=== PATIENT | female | born 1930 | race Caucasian/White ===

== ENCOUNTER 2018-07-11 19:37 | Inpatient (IN) | payer MEDICARE, MEDICAID ==
[2018-07-11] MEDS ORDERED: Haloperidol Lactate 5 mg/mL 1mL Vial IM STA (19:54)
--- NOTE | 2018-07-11 19:55 | ED Physician Chart ---
ED Chief Complaint/HPI - Patient Information Date Seen:: 07/11/18 Time Seen:: 19:55 Chief Complaint:: Increased agitation History of Present Illness:: 88 yo female was brought from SNF to ER for evaluation of increased agitation, aggression throwing objects at nursing staff. At ER, patient was yelling and screaming to staff. Patient was constantly trying to climb out of bed. ED Review of Systems - Review of Systems General/Constitutional: No fever Skin: No rash Head: No headache Eyes: No pain ENT: No nasal drainage Neck: No neck pain Cardio Vascular: No chest pain Pulmonary: No SOB GI: No nausea, No vomiting Musculoskeletal: No bone or joint pain Psychiatric: Prior psych history Neurological: No focal symptoms ED Past Medical History - Past Medical History Past Medical History: HTN, Asthma/COPD, Thyroid disorder (Hypothyroidism), Other (Dysphagia, glaucoma, syncope episodes, frequent falls) Social History: Non Smoker, No Alcohol, No Drug Use Psychiatricy History: Depression, Dementia, Other (Anxiety) Family Medical History - Family Member Mother History Unknown: Yes ED Physical Exam - Physical Examination General/Constitutional: Awake Head: Atraumatic Eyes: PERRL, EOMI Skin: No skin lesions ENMT: Nasal exam nl Neck: No nuchal rigidity Respiratory: No Wheeze/Rhonchi/Rales Cardio Vascular: RRR, No murmur, gallop, rubs, NL S1 S2 GI: No tenderness/rebounding/guarding Extremities: No edema Neuro/Psych: No focal deficits ED Labs/Radiology/EKG Results - Lab Results Results: Laboratory Last Values WBC 10.4 Th/cmm (4.8-10.8) 07/11/18 21:50 RBC 5.49 Mil/cmm (3.80-5.20) H 07/11/18 21:50 Hgb 16.3 gm/dL (12-16) 07/11/18 21:50 Hct 47.2 % (41.0-60) 07/11/18 21:50 MCV 86.0 fl (81-100) 07/11/18 21:50 MCH 29.7 pg (27.0-31.0) 07/11/18 21:50 MCHC Differential 34.6 pg (28.0-36.0) 07/11/18 21:50 RDW 14.1 % (11.5-20.0) 07/11/18 21:50 Plt Count 228 Th/cmm (150-400) 07/11/18 21:50 MPV 8.5 fl 07/11/18 21:50 Neutrophils % 66.2 % (40.0-80.0) 07/11/18 21:50 Lymphocytes % 23.8 % (20.0-50.0) 07/11/18 21:50 Monocytes % 7.5 % (2.0-10.0) 07/11/18 21:50 Eosinophils % 2.0 % (0.0-5.0) 07/11/18 21:50 Basophils % 0.5 % (0.0-2.0) 07/11/18 21:50 Sodium 138 mEq/L (136-145) 07/11/18 21:50 Potassium 3.4 mEq/L (3.5-5.1) L 07/11/18 21:50 Chloride 107 mEq/L (98-107) 07/11/18 21:50 Carbon Dioxide 21.8 mEq/L (21.0-31.0) 07/11/18 21:50 Anion Gap 12.6 (7.0-16.0) 07/11/18 21:50 BUN 12 mg/dL (7-25) 07/11/18 21:50 Creatinine 0.8 mg/dL (0.6-1.2) 07/11/18 21:50 Est GFR ( Amer) TNP 07/11/18 21:50 Est GFR (Non-Af Amer) TNP 07/11/18 21:50 BUN/Creatinine Ratio 15.0 07/11/18 21:50 Glucose 103 mg/dL (70-105) 07/11/18 21:50 Calcium 9.2 mg/dL (8.6-10.3) 07/11/18 21:50 Total Bilirubin 0.4 mg/dL (0.3-1.0) 07/11/18 21:50 AST 22 U/L (13-39) 07/11/18 21:50 ALT 12 U/L (7-52) 07/11/18 21:50 Alkaline Phosphatase 62 U/L (34-104) 07/11/18 21:50 Troponin I 0.03 ng/mL (0.01-0.05) 07/11/18 21:50 B-Natriuretic Peptide 77.1 pg/mL (5.0-100.0) 07/11/18 21:50 Total Protein 6.9 gm/dL (6.0-8.3) 07/11/18 21:50 Albumin 3.5 gm/dL (3.7-5.3) L 07/11/18 21:50 Globulin 3.4 gm/dL 07/11/18 21:50 Albumin/Globulin Ratio 1.0 (1.0-1.8) 07/11/18 21:50 - Radiology Results Results: CXR: no acute disease - EKG Interpretations EKG Time:: 21:22 Rate & Rhythm: 70 bpm, sinus rhythm [place]: Normal axis Comments:: Non specific ST, T changes ED Assessment - Assessment General Assessment: Hypokalemia Hypertension Dementia Schizophrenia Psychosis Assessment/Comments:: Haldol 5mg IM Benadryl 50mg IM Ativan 1mg IM CBC, CMP, Trop, BNP, UA CXR, EKG KCL 20 mEq PO x 1 Admit to alen for further evaluation and management ED Septic Shock - . Is Septic Shock (SBP<90, OR Lactate>4 mmol\L) present?: No ED Reassessment (Disposition) - Reassessment Reassessment Condition:: Improved - Patient Disposition Discharge/Transfer:: Alen ware/in this hosp Admitting Medical Physician:: Jake Norton Admitting Psych Physician:: Tahir Avery
[2018-07-11] MEDS ORDERED: Haloperidol Lactate 5 mg/mL 1mL Vial ONE (19:56)
[2018-07-11 21:58] LABS: % BASOPHILS 0.5 % (0.0-2.0); % LYMPHOCYTES 23.8 % (20.0-50.0); % MONOCYTES 7.5 % (2.0-10.0); % NEUTROPHILS 66.2 % (40.0-80.0); BASOPHILE ABSOLUTE 0.1 Th/cumm (0-0.2); EOSINOPHILE ABSOLUTE 0.2 Th/cmm (0.1-0.4); HEMATOCRIT 47.2 % (41.0-60); HEMOGLOBIN 16.3 gm/dL (12-16); LYMPHOCYTE ABSOLUTE 2.5 Th/cmm (1.5-3.0); MEAN CORPUSCULAR HEMOGLOBIN 29.7 pg (27.0-31.0); MEAN CORPUSCULAR HGB CONC 34.6 pg (28.0-36.0); MEAN PLATELET VOLUME 8.5 fl; MONOCYTE ABSOLUTE 0.8 Th/cmm (0.3-1.0); NEUTROPHILE ABSOLUTE 6.8 Th/cmm (1.8-8.0); PLATELET COUNT 228 Th/cmm (150-400); RED BLOOD COUNT 5.49 Mil/cmm (3.80-5.20); RED CELL DISTRIBUTION WIDTH 14.1 % (11.5-20.0); WHITE BLOOD COUNT 10.4 Th/cmm (4.8-10.8)
[2018-07-11 22:12] LABS: ALBUMIN 3.5 gm/dL (3.7-5.3); ALKALINE PHOSPHATASE 62 U/L (34-104); ANION GAP 12.6 (7.0-16.0); BILIRUBIN,TOTAL 0.4 mg/dL (0.3-1.0); BUN - UREA NITROGEN 12 mg/dL (7-25); CALCIUM SERUM 9.2 mg/dL (8.6-10.3); CARBON DIOXIDE 21.8 mEq/L (21.0-31.0); CHLORIDE 107 mEq/L (98-107); CREATININE - SERUM 0.8 mg/dL (0.6-1.2); GLUCOSE 103 mg/dL (70-105); POTASSIUM SERUM 3.4 mEq/L (3.5-5.1); SGOT 22 U/L (13-39); SGPT/ALT 12 U/L (7-52); SODIUM SERUM 138 mEq/L (136-145); TOTAL PROTEIN,SERUM 6.9 gm/dL (6.0-8.3)
[2018-07-11] MEDS ORDERED: Potassium Chloride Elixir 20 mEq /15 mL UDC PO ONE (22:31)
[2018-07-11] MEDS ORDERED: Potassium Chloride Elixir 20 mEq /15 mL UDC ONE (22:40)
[2018-07-12 00:23] VITALS: BP 106/75
[2018-07-12] MEDS ORDERED: Maalox 30 mL Cup PO PRN (00:58)
[2018-07-12] MEDS ORDERED: Magnesium Hydroxide (MOM) 30 mL UDC PO PRN ×2 (00:58→08:23)
[2018-07-12 07:47] LABS: CHOLESTEROL 188 mg/dL (<200); HDL -HIGH DENSITY LIPOPROTEIN 45 mg/dL (23-92); TRIGLYCERIDES 129 mg/dL (<150)
--- NOTE | 2018-07-12 08:43 | Diagnostic Imaging Report ---
CHEST X-RAY: AP view INDICATION: Shortness of breath COMPARISON: None FINDINGS: Chronic lung changes are noted. Exam is limited due to patient rotation. There is mild elevation of the right hemidiaphragm. There is no focal consolidation or pleural effusions The heart is normal in size. Degenerative changes of the spine are noted with scoliosis. Degenerative changes of the shoulders are noted with high riding right humeral head. IMPRESSION: Chronic lung changes with no focal consolidation identified.
[2018-07-12] MEDS: Multivitamin Tab PO SCH (09:00)
--- NOTE | 2018-07-12 12:31 | Internal Medicine Prog Note ---
Internal Medicine Subjective - Subjective Service Date: 07/12/18 ([id number]) Patient is:: interactive Internal Medicine Objective - Results Result Diagrams: 07/11/18 21:50 07/11/18 21:50 Recent Labs: Laboratory Last Values WBC 10.4 Th/cmm (4.8-10.8) 07/11/18 21:50 RBC 5.49 Mil/cmm (3.80-5.20) H 07/11/18 21:50 Hgb 16.3 gm/dL (12-16) 07/11/18 21:50 Hct 47.2 % (41.0-60) 07/11/18 21:50 MCV 86.0 fl (81-100) 07/11/18 21:50 MCH 29.7 pg (27.0-31.0) 07/11/18 21:50 MCHC Differential 34.6 pg (28.0-36.0) 07/11/18 21:50 RDW 14.1 % (11.5-20.0) 07/11/18 21:50 Plt Count 228 Th/cmm (150-400) 07/11/18 21:50 MPV 8.5 fl 07/11/18 21:50 Neutrophils % 66.2 % (40.0-80.0) 07/11/18 21:50 Lymphocytes % 23.8 % (20.0-50.0) 07/11/18 21:50 Monocytes % 7.5 % (2.0-10.0) 07/11/18 21:50 Eosinophils % 2.0 % (0.0-5.0) 07/11/18 21:50 Basophils % 0.5 % (0.0-2.0) 07/11/18 21:50 Sodium 138 mEq/L (136-145) 07/11/18 21:50 Potassium 3.4 mEq/L (3.5-5.1) L 07/11/18 21:50 Chloride 107 mEq/L (98-107) 07/11/18 21:50 Carbon Dioxide 21.8 mEq/L (21.0-31.0) 07/11/18 21:50 Anion Gap 12.6 (7.0-16.0) 07/11/18 21:50 BUN 12 mg/dL (7-25) 07/11/18 21:50 Creatinine 0.8 mg/dL (0.6-1.2) 07/11/18 21:50 Est GFR ( Amer) TNP 07/11/18 21:50 Est GFR (Non-Af Amer) TNP 07/11/18 21:50 BUN/Creatinine Ratio 15.0 07/11/18 21:50 Glucose 103 mg/dL (70-105) 07/11/18 21:50 Calcium 9.2 mg/dL (8.6-10.3) 07/11/18 21:50 Total Bilirubin 0.4 mg/dL (0.3-1.0) 07/11/18 21:50 AST 22 U/L (13-39) 07/11/18 21:50 ALT 12 U/L (7-52) 07/11/18 21:50 Alkaline Phosphatase 62 U/L (34-104) 07/11/18 21:50 Troponin I 0.03 ng/mL (0.01-0.05) 07/11/18 21:50 B-Natriuretic Peptide 77.1 pg/mL (5.0-100.0) 07/11/18 21:50 Total Protein 6.9 gm/dL (6.0-8.3) 07/11/18 21:50 Albumin 3.5 gm/dL (3.7-5.3) L 07/11/18 21:50 Globulin 3.4 gm/dL 07/11/18 21:50 Albumin/Globulin Ratio 1.0 (1.0-1.8) 07/11/18 21:50 Triglycerides 129 mg/dL (<150) 07/12/18 07:10 Cholesterol 188 mg/dL (<200) 07/12/18 07:10 LDL Cholesterol Direct 125 mg/dL (75-193) 07/12/18 07:10 HDL Cholesterol 45 mg/dL (23-92) 07/12/18 07:10 TSH 2.14 uIU/ml (0.34-5.60) 07/11/18 21:50 RPR NONREACTIVE (NONREACTIVE) 07/11/18 21:50 - Physical Exam Vitals and I&O: Vital Signs Temp 97.4 F 07/12/18 06:26 Pulse 76 07/12/18 06:26 Resp 19 11/14/18 06:26 BP 117/59 07/12/18 06:26 Pulse Ox 92 07/12/18 06:26 Intake & Output 07/11/18 07/12/18 07/12/18 18:59 06:59 18:59 Weight (lbs) 135 lb Other: Weight Source Estimated Active Medications: Current Medications Acetaminophen (Tylenol) 650 mg PO Q4HR PRN PRN Reason: Mild Pain / Temp above 100 Stop: 09/10/18 00:57 Acetaminophen (Tylenol) 650 mg PO Q6H PRN PRN Reason: Pain (Mild) Stop: 09/10/18 08:22 Al Hydrox/Mg Hydrox/Simethicone (Maalox) 30 ml PO Q4HR PRN PRN Reason: GI DISTRESS Stop: 09/10/18 00:57 Albuterol Sulfate (Albuterol 2.5mg/3ml Neb Ud) 2.5 mg HHN QIDRT [facility] Stop: 09/10/18 10:59 Donepezil HCl (Aricept) 5 mg PO HS [facility] Stop: 09/10/18 20:59 Lorazepam (Ativan) 0.5 mg PO Q4HR PRN; Protocol PRN Reason: Anxiety Stop: 08/11/18 00:57 Magnesium Hydroxide (Milk Of Magnesia) 30 ml PO HS PRN PRN Reason: Constipation Magnesium Hydroxide (Milk Of Magnesia) 30 ml PO HS PRN PRN Reason: Constipation Stop: 09/10/18 08:22 Memantine (Namenda) 1 mg PO HS [facility] Stop: 09/10/18 20:59 Mirtazapine (Remeron) 7.5 mg PO HS [facility] Stop: 09/10/18 20:59 Miscellaneous (Brimonidine Tartrate/Timolol [Combigan 0.2%-0.5% Eye Drops]) 1 drop OP HS [facility] Stop: 09/10/18 20:59 Multivitamins/Vitamin C (Theragran) 1 tab PO DAILY [facility] Stop: 09/10/18 08:59 Last Admin: 07/12/18 09:00 Dose: 1 tab Zolpidem Tartrate (Ambien) 5 mg PO HS PRN PRN Reason: Insomnia Stop: 09/10/18 00:57
--- NOTE | 2018-07-12 17:23 | History & Physical ---
ADMIT DATE: 07/12/2018 CHIEF COMPLAINT: Agitation. HISTORY OF PRESENT ILLNESS: This is an 88-year-old female who is a alf resident, admitted to the Geropsych Unit due to 1-day history of increasing agitation and aggression towards nursing staff and residents at the alf. PAST MEDICAL HISTORY: Hypertension, asthma, COPD, hypothyroidism, dysphagia, glaucoma, syncope episodes, frequent falls. SOCIAL HISTORY: The patient is a alf resident, requiring 24-hour nursing care. FAMILY HISTORY: Noncontributory. REVIEW OF SYSTEMS: Unable to obtain, patient is confused. PHYSICAL EXAMINATION: GENERAL: Elderly female, awake, alert with confusion, in no apparent distress. VITAL SIGNS: Temperature 97.4, heart rate 76, blood pressure 117/59, respirations 19, O2 of 92%. HEENT: Head: Normocephalic, atraumatic. NECK: Supple. No mass. LUNGS: Clear bilaterally. HEART: Regular rate and rhythm. ABDOMEN: Soft, nontender. LABORATORY DATA: WBC 10.4, H and H 16.3 and 47.2, platelet of 228. Sodium 138, potassium 3.4, chloride 107, BUN 12, creatinine 0.8. ASSESSMENT: Hypokalemia, hypertension, asthma, chronic obstructive pulmonary disease, hypothyroidism, dysphagia, aggressive behavior, history of frequent falls. PLAN: Fall precautions have been initiated. The patient is to continue same medications from alf. We will continue to monitor dysphagia. JOB# [id number]
--- NOTE | 2018-07-13 03:28 | Psychiatric Evaluation ---
DATE OF SERVICE: 07/12/2018 IDENTIFYING DATA: The patient is an 88-year-old woman, resident of a [facility]. Information obtained directly interviewing the patient as well as reviewing the admission paper. JUSTIFICATION OF HOSPITALIZATION: The patient is admitted here on a voluntary basis in view of her out of control behavior. CHIEF COMPLAINT: "I don't want to talk to anyone now." HISTORY OF PRESENT ILLNESS: This is the first psychiatric hospitalization to [facility] for this patient, who is reported to have been out of control and has been throwing chairs and has been very aggressive towards the staff at the [facility] and the patient could not be contained at a lower level of care and the patient has to be transferred over here for stabilization. PAST PSYCHIATRIC HISTORY: Details are not known. The patient; however, has been treated for depression with the Remeron. MEDICAL HISTORY: Physical examination is requested to be done by Dr. Norton. SUBSTANCE ABUSE HISTORY: None. PHYSICAL OR SEXUAL ABUSE HISTORY: None. LEGAL PROBLEMS: None at this time. MENTAL STATUS EXAMINATION: The patient is an 88-year-old woman looking her stated age, superficially cooperative. Eye contact is poor. Mood is noted to be irritable. Affect is constricted. Insight and judgment at this time are noted to be still impaired. Impulse control is noted to be poor. Coping skills are noted to be poor. The patient has been having difficult time to cope with the stress and has been throwing temper tantrums on the unit. The patient has short-term ____. Long-term memory is also noted to be poor. The patient is not able to figure it out that she is in the hospital. The patient is very paranoid at this time. DIAGNOSTIC IMPRESSION: AXIS I: Dementia and behavioral change, secondary trait. IB: Psychotic disorder, not otherwise specified. AXIS II: None. AXIS III: As per Dr. Norton. IMMEDIATE TREATMENT PLAN: The patient is going to be observed on the inpatient unit, provided with supportive psychotherapy. The patient is going to be closely monitored. Once stabilized, the patient is going to be discharged to [facility] to be followed up on an outpatient basis. JOB# [id number]
[2018-07-13] MEDS: Multivitamin Tab PO SCH (09:35)
--- NOTE | 2018-07-13 11:35 | Internal Medicine Prog Note ---
Internal Medicine Subjective - Subjective Service Date: 07/13/18 Patient seen and examined:: with staff Patient is:: awake, interactive Per staff patient has:: tolerating meds Internal Medicine Objective - Results Result Diagrams: 07/11/18 21:50 07/11/18 21:50 Recent Labs: Laboratory Last Values WBC 10.4 Th/cmm (4.8-10.8) 07/11/18 21:50 RBC 5.49 Mil/cmm (3.80-5.20) H 07/11/18 21:50 Hgb 16.3 gm/dL (12-16) 07/11/18 21:50 Hct 47.2 % (41.0-60) 07/11/18 21:50 MCV 86.0 fl (81-100) 07/11/18 21:50 MCH 29.7 pg (27.0-31.0) 07/11/18 21:50 MCHC Differential 34.6 pg (28.0-36.0) 07/11/18 21:50 RDW 14.1 % (11.5-20.0) 07/11/18 21:50 Plt Count 228 Th/cmm (150-400) 07/11/18 21:50 MPV 8.5 fl 07/11/18 21:50 Neutrophils % 66.2 % (40.0-80.0) 07/11/18 21:50 Lymphocytes % 23.8 % (20.0-50.0) 07/11/18 21:50 Monocytes % 7.5 % (2.0-10.0) 07/11/18 21:50 Eosinophils % 2.0 % (0.0-5.0) 07/11/18 21:50 Basophils % 0.5 % (0.0-2.0) 07/11/18 21:50 Sodium 138 mEq/L (136-145) 07/11/18 21:50 Potassium 3.4 mEq/L (3.5-5.1) L 07/11/18 21:50 Chloride 107 mEq/L (98-107) 07/11/18 21:50 Carbon Dioxide 21.8 mEq/L (21.0-31.0) 07/11/18 21:50 Anion Gap 12.6 (7.0-16.0) 07/11/18 21:50 BUN 12 mg/dL (7-25) 07/11/18 21:50 Creatinine 0.8 mg/dL (0.6-1.2) 07/11/18 21:50 Est GFR ( Amer) TNP 07/11/18 21:50 Est GFR (Non-Af Amer) TNP 07/11/18 21:50 BUN/Creatinine Ratio 15.0 07/11/18 21:50 Glucose 103 mg/dL (70-105) 07/11/18 21:50 Calcium 9.2 mg/dL (8.6-10.3) 07/11/18 21:50 Total Bilirubin 0.4 mg/dL (0.3-1.0) 07/11/18 21:50 AST 22 U/L (13-39) 07/11/18 21:50 ALT 12 U/L (7-52) 07/11/18 21:50 Alkaline Phosphatase 62 U/L (34-104) 07/11/18 21:50 Troponin I 0.03 ng/mL (0.01-0.05) 07/11/18 21:50 B-Natriuretic Peptide 77.1 pg/mL (5.0-100.0) 07/11/18 21:50 Total Protein 6.9 gm/dL (6.0-8.3) 07/11/18 21:50 Albumin 3.5 gm/dL (3.7-5.3) L 07/11/18 21:50 Globulin 3.4 gm/dL 07/11/18 21:50 Albumin/Globulin Ratio 1.0 (1.0-1.8) 07/11/18 21:50 Triglycerides 129 mg/dL (<150) 07/12/18 07:10 Cholesterol 188 mg/dL (<200) 07/12/18 07:10 LDL Cholesterol Direct 125 mg/dL (75-193) 07/12/18 07:10 HDL Cholesterol 45 mg/dL (23-92) 07/12/18 07:10 TSH 2.14 uIU/ml (0.34-5.60) 07/11/18 21:50 RPR NONREACTIVE (NONREACTIVE) 07/11/18 21:50 - Physical Exam Vitals and I&O: Vital Signs Temp 97 F 07/13/18 06:58 Pulse 82 07/13/18 06:58 Resp 20 07/13/18 06:58 BP 130/78 07/13/18 06:58 Pulse Ox 97 07/13/18 06:58 Intake & Output 07/12/18 07/13/18 07/13/18 18:59 06:59 18:59 Intake Total 1200 120 Balance 1200 120 Intake: Oral 1200 120 Other: # Voids 3 # Bowel Movements 1 Active Medications: Current Medications Acetaminophen (Tylenol) 650 mg PO Q4HR PRN PRN Reason: Mild Pain / Temp above 100 Stop: 09/10/18 00:57 Acetaminophen (Tylenol) 650 mg PO Q6H PRN PRN Reason: Pain (Mild) Stop: 09/10/18 08:22 Al Hydrox/Mg Hydrox/Simethicone (Maalox) 30 ml PO Q4HR PRN PRN Reason: GI DISTRESS Stop: 09/10/18 00:57 Albuterol Sulfate (Albuterol 2.5mg/3ml Neb Ud) 2.5 mg HHN QIDRT [facility] Stop: 09/10/18 10:59 Donepezil HCl (Aricept) 5 mg PO HS [facility] Stop: 09/10/18 20:59 Last Admin: 07/12/18 21:44 Dose: 5 mg Dorzolamide/Timolol (Cosopt Ophth Soln) 1 drop EACH EYE HS [facility] Stop: 09/10/18 20:59 Last Admin: 07/12/18 21:43 Dose: 1 drop Lorazepam (Ativan) 0.5 mg PO Q4HR PRN; Protocol PRN Reason: Anxiety Stop: 08/11/18 00:57 Magnesium Hydroxide (Milk Of Magnesia) 30 ml PO HS PRN PRN Reason: Constipation Magnesium Hydroxide (Milk Of Magnesia) 30 ml PO HS PRN PRN Reason: Constipation Stop: 09/10/18 08:22 Memantine (Namenda) 5 mg PO HS [facility] Stop: 09/11/18 20:59 Multivitamins/Vitamin C (Theragran) 1 tab PO DAILY [facility] Stop: 09/10/18 08:59 Last Admin: 07/13/18 09:35 Dose: 1 tab Quetiapine Fumarate (Seroquel) 12.5 mg PO HS [facility]; Protocol Stop: 09/10/18 20:59 Last Admin: 07/12/18 21:43 Dose: 12.5 mg Zolpidem Tartrate (Ambien) 5 mg PO HS PRN PRN Reason: Insomnia Stop: 09/10/18 00:57 HEENT: NC/AT, PERRLA Neck: Supple Lungs: CTAB Cardiovascular: RRR, Normal S1, Normal S2, without murmur Abdomen: soft, non-tender, non-distended, positive bowel sound Neurological: alert Internal Medicine Assmt/Plan - Assessment Assessment: Hypokalemia, hypertension, asthma, chronic obstructive pulmonary disease, hypothyroidism, dysphagia, aggressive behavior, history of frequent falls. . - Plan Plan: fall precautions prn o2 continue current plan of care
--- NOTE | 2018-07-14 09:43 | Progress Notes ---
DATE: SUBJECTIVE: Chart reviewed and the patient interviewed. Also discussed the patient's condition with the staff and reviewed records and labs. The patient transferred from my care with request from Dr. Young who is her primary care physician who asked me to follow her in [facility] where she is living. The patient is easily agitated and she was throwing chairs and very aggressive on the staff in [facility]. She also was angry and not able to follow any of staff directions. The patient still angry and she is still easily agitated and depressed. She also is still in a depressed mood and she wants to be left alone. Otherwise, the patient is noncompliant with taking her medications with no side effects of medications. During interview, the patient is forgetful and she is not able to follow instructions. TREATMENT PLAN: We will continue monitoring her behavior and her condition closely. Also, monitoring psychotropic medications, will work on behavioral modification. At this time, the patient's memory is poor and Dr. Hodge recommended psychotherapy, which I do not think it is going to be of any benefit for a patient who has poor immediate, short and group home memories. We will cancel any psychotherapy at this time, but will work on adjusting psychotropic medications and behavioral modifications. [facility]# [id number]
--- NOTE | 2018-07-14 12:41 | Internal Medicine Prog Note ---
Internal Medicine Subjective - Subjective Service Date: 07/14/18 Patient is:: awake, interactive Per staff patient has:: tolerating meds Internal Medicine Objective - Results Result Diagrams: 07/11/18 21:50 07/11/18 21:50 Recent Labs: Laboratory Last Values WBC 10.4 Th/cmm (4.8-10.8) 07/11/18 21:50 RBC 5.49 Mil/cmm (3.80-5.20) H 07/11/18 21:50 Hgb 16.3 gm/dL (12-16) 07/11/18 21:50 Hct 47.2 % (41.0-60) 07/11/18 21:50 MCV 86.0 fl (81-100) 07/11/18 21:50 MCH 29.7 pg (27.0-31.0) 07/11/18 21:50 MCHC Differential 34.6 pg (28.0-36.0) 07/11/18 21:50 RDW 14.1 % (11.5-20.0) 07/11/18 21:50 Plt Count 228 Th/cmm (150-400) 07/11/18 21:50 MPV 8.5 fl 07/11/18 21:50 Neutrophils % 66.2 % (40.0-80.0) 07/11/18 21:50 Lymphocytes % 23.8 % (20.0-50.0) 07/11/18 21:50 Monocytes % 7.5 % (2.0-10.0) 07/11/18 21:50 Eosinophils % 2.0 % (0.0-5.0) 07/11/18 21:50 Basophils % 0.5 % (0.0-2.0) 07/11/18 21:50 Sodium 138 mEq/L (136-145) 07/11/18 21:50 Potassium 3.4 mEq/L (3.5-5.1) L 07/11/18 21:50 Chloride 107 mEq/L (98-107) 07/11/18 21:50 Carbon Dioxide 21.8 mEq/L (21.0-31.0) 07/11/18 21:50 Anion Gap 12.6 (7.0-16.0) 07/11/18 21:50 BUN 12 mg/dL (7-25) 07/11/18 21:50 Creatinine 0.8 mg/dL (0.6-1.2) 07/11/18 21:50 Est GFR ( Amer) TNP 07/11/18 21:50 Est GFR (Non-Af Amer) TNP 07/11/18 21:50 BUN/Creatinine Ratio 15.0 07/11/18 21:50 Glucose 103 mg/dL (70-105) 07/11/18 21:50 Calcium 9.2 mg/dL (8.6-10.3) 07/11/18 21:50 Total Bilirubin 0.4 mg/dL (0.3-1.0) 07/11/18 21:50 AST 22 U/L (13-39) 07/11/18 21:50 ALT 12 U/L (7-52) 07/11/18 21:50 Alkaline Phosphatase 62 U/L (34-104) 07/11/18 21:50 Troponin I 0.03 ng/mL (0.01-0.05) 07/11/18 21:50 B-Natriuretic Peptide 77.1 pg/mL (5.0-100.0) 07/11/18 21:50 Total Protein 6.9 gm/dL (6.0-8.3) 07/11/18 21:50 Albumin 3.5 gm/dL (3.7-5.3) L 07/11/18 21:50 Globulin 3.4 gm/dL 07/11/18 21:50 Albumin/Globulin Ratio 1.0 (1.0-1.8) 07/11/18 21:50 Triglycerides 129 mg/dL (<150) 07/12/18 07:10 Cholesterol 188 mg/dL (<200) 07/12/18 07:10 LDL Cholesterol Direct 125 mg/dL (75-193) 07/12/18 07:10 HDL Cholesterol 45 mg/dL (23-92) 07/12/18 07:10 TSH 2.14 uIU/ml (0.34-5.60) 07/11/18 21:50 RPR NONREACTIVE (NONREACTIVE) 07/11/18 21:50 - Physical Exam Vitals and I&O: Vital Signs Temp 98.9 F 07/13/18 19:57 Pulse 70 07/13/18 19:57 Resp 20 07/14/18 08:00 BP 106/72 07/13/18 19:57 Pulse Ox 94 07/13/18 19:57 Intake & Output 07/13/18 07/14/18 07/14/18 18:59 06:59 18:59 Intake Total 1200 120 Balance 1200 120 Intake: Oral 1200 120 Other: # Voids 1 # Bowel Movements 1 Active Medications: Current Medications Acetaminophen (Tylenol) 650 mg PO Q4HR PRN PRN Reason: Mild Pain / Temp above 100 Stop: 09/10/18 00:57 Acetaminophen (Tylenol) 650 mg PO Q6H PRN PRN Reason: Pain (Mild) Stop: 09/10/18 08:22 Al Hydrox/Mg Hydrox/Simethicone (Maalox) 30 ml PO Q4HR PRN PRN Reason: GI DISTRESS Stop: 09/10/18 00:57 Albuterol Sulfate (Albuterol 2.5mg/3ml Neb Ud) 2.5 mg HHN QIDRT [facility] Stop: 09/10/18 10:59 Donepezil HCl (Aricept) 5 mg PO HS [facility] Stop: 09/10/18 20:59 Last Admin: 07/13/18 21:00 Dose: 5 mg Dorzolamide/Timolol (Cosopt Ophth Soln) 1 drop EACH EYE HS [facility] Stop: 09/10/18 20:59 Last Admin: 07/13/18 21:00 Dose: 1 drop Lorazepam (Ativan) 0.5 mg PO Q4HR PRN; Protocol PRN Reason: Anxiety Stop: 08/11/18 00:57 Magnesium Hydroxide (Milk Of Magnesia) 30 ml PO HS PRN PRN Reason: Constipation Magnesium Hydroxide (Milk Of Magnesia) 30 ml PO HS PRN PRN Reason: Constipation Stop: 09/10/18 08:22 Memantine (Namenda) 5 mg PO HS [facility] Stop: 09/11/18 20:59 Last Admin: 07/13/18 21:00 Dose: 5 mg Multivitamins/Vitamin C (Theragran) 1 tab PO DAILY [facility] Stop: 09/10/18 08:59 Last Admin: 07/13/18 09:35 Dose: 1 tab Quetiapine Fumarate (Seroquel) 12.5 mg PO BID [facility]; Protocol Stop: 01/15/19 16:59 Zolpidem Tartrate (Ambien) 5 mg PO HS PRN PRN Reason: Insomnia Stop: 09/10/18 00:57 HEENT: NC/AT, PERRLA Neck: Supple Lungs: CTAB Cardiovascular: RRR, Normal S1, Normal S2, without murmur Abdomen: soft, non-tender, non-distended, positive bowel sound Neurological: alert Internal Medicine Assmt/Plan - Assessment Assessment: Hypokalemia, hypertension, asthma, chronic obstructive pulmonary disease, hypothyroidism, dysphagia, aggressive behavior, history of frequent falls. . - Plan Plan: fall precautions prn o2 continue current plan of care
[2018-07-14] MEDS: Multivitamin Tab PO SCH (16:40)
[2018-07-14] MEDS: Albuterol Nebulizer 2.5mg/3mL HHN SCH (19:37)
--- NOTE | 2018-07-14 21:52 | Progress Notes ---
DATE: SUBJECTIVE: Chart reviewed and the patient interviewed. Also discussed the patient's condition with the staff and reviewed records and labs. The patient is still severely irritable and severely agitated. The patient also is actively responding. The patient also is still paranoid and suspicious. The patient also is still having severe mood swings and still yelling and screaming and tries to hit staff, especially when they tried to help with her ADLs. Otherwise, the patient started to take the higher dose of medications with no side effects. ASSESSMENT: The patient is still aggressive and agitated. TREATMENT PLAN: We will continue monitoring her behavior and her condition closely. Also, continue adjusting psychotropic medications and continue to follow up closely. [facility]# [id number]
[2018-07-15] MEDS: Albuterol Nebulizer 2.5mg/3mL HHN SCH ×3 (07:20→14:16)
[2018-07-15] MEDS: Multivitamin Tab PO SCH (09:28)
--- NOTE | 2018-07-15 12:34 | Internal Medicine Prog Note ---
Internal Medicine Subjective - Subjective Service Date: 07/15/18 (has poor appetite) Patient is:: awake, interactive Per staff patient has:: tolerating meds Internal Medicine Objective - Results Result Diagrams: 07/11/18 21:50 07/11/18 21:50 Recent Labs: Laboratory Last Values WBC 10.4 Th/cmm (4.8-10.8) 07/11/18 21:50 RBC 5.49 Mil/cmm (3.80-5.20) H 07/11/18 21:50 Hgb 16.3 gm/dL (12-16) 07/11/18 21:50 Hct 47.2 % (41.0-60) 07/11/18 21:50 MCV 86.0 fl (81-100) 07/11/18 21:50 MCH 29.7 pg (27.0-31.0) 07/11/18 21:50 MCHC Differential 34.6 pg (28.0-36.0) 07/11/18 21:50 RDW 14.1 % (11.5-20.0) 07/11/18 21:50 Plt Count 228 Th/cmm (150-400) 07/11/18 21:50 MPV 8.5 fl 07/11/18 21:50 Neutrophils % 66.2 % (40.0-80.0) 07/11/18 21:50 Lymphocytes % 23.8 % (20.0-50.0) 07/11/18 21:50 Monocytes % 7.5 % (2.0-10.0) 07/11/18 21:50 Eosinophils % 2.0 % (0.0-5.0) 07/11/18 21:50 Basophils % 0.5 % (0.0-2.0) 07/11/18 21:50 Sodium 138 mEq/L (136-145) 07/11/18 21:50 Potassium 3.4 mEq/L (3.5-5.1) L 07/11/18 21:50 Chloride 107 mEq/L (98-107) 07/11/18 21:50 Carbon Dioxide 21.8 mEq/L (21.0-31.0) 07/11/18 21:50 Anion Gap 12.6 (7.0-16.0) 07/11/18 21:50 BUN 12 mg/dL (7-25) 07/11/18 21:50 Creatinine 0.8 mg/dL (0.6-1.2) 07/11/18 21:50 Est GFR ( Amer) TNP 07/11/18 21:50 Est GFR (Non-Af Amer) TNP 07/11/18 21:50 BUN/Creatinine Ratio 15.0 07/11/18 21:50 Glucose 103 mg/dL (70-105) 07/11/18 21:50 Calcium 9.2 mg/dL (8.6-10.3) 07/11/18 21:50 Total Bilirubin 0.4 mg/dL (0.3-1.0) 07/11/18 21:50 AST 22 U/L (13-39) 07/11/18 21:50 ALT 12 U/L (7-52) 07/11/18 21:50 Alkaline Phosphatase 62 U/L (34-104) 07/11/18 21:50 Troponin I 0.03 ng/mL (0.01-0.05) 07/11/18 21:50 B-Natriuretic Peptide 77.1 pg/mL (5.0-100.0) 07/11/18 21:50 Total Protein 6.9 gm/dL (6.0-8.3) 07/11/18 21:50 Albumin 3.5 gm/dL (3.7-5.3) L 07/11/18 21:50 Globulin 3.4 gm/dL 07/11/18 21:50 Albumin/Globulin Ratio 1.0 (1.0-1.8) 07/11/18 21:50 Triglycerides 129 mg/dL (<150) 07/12/18 07:10 Cholesterol 188 mg/dL (<200) 07/12/18 07:10 LDL Cholesterol Direct 125 mg/dL (75-193) 07/12/18 07:10 HDL Cholesterol 45 mg/dL (23-92) 07/12/18 07:10 TSH 2.14 uIU/ml (0.34-5.60) 07/11/18 21:50 RPR NONREACTIVE (NONREACTIVE) 07/11/18 21:50 - Physical Exam Vitals and I&O: Vital Signs Temp 98.3 F 07/15/18 06:25 Pulse 62 07/15/18 10:50 Resp 18 11/17/18 10:50 BP 119/62 07/15/18 06:25 Pulse Ox 92 07/15/18 10:50 Intake & Output 07/14/18 07/15/18 07/15/18 18:59 06:59 18:59 Intake Total 1200 120 Balance 1200 120 Intake: Oral 1200 120 Other: # Voids 3 # Bowel Movements 2 0 Active Medications: Current Medications Acetaminophen (Tylenol) 650 mg PO Q4HR PRN PRN Reason: Mild Pain / Temp above 100 Stop: 09/10/18 00:57 Acetaminophen (Tylenol) 650 mg PO Q6H PRN PRN Reason: Pain (Mild) Stop: 09/10/18 08:22 Al Hydrox/Mg Hydrox/Simethicone (Maalox) 30 ml PO Q4HR PRN PRN Reason: GI DISTRESS Stop: 09/10/18 00:57 Albuterol Sulfate (Albuterol 2.5mg/3ml Neb Ud) 2.5 mg HHN QIDRT [facility] Stop: 09/10/18 10:59 Last Admin: 07/15/18 10:50 Dose: Not Given Donepezil HCl (Aricept) 5 mg PO HS [facility] Stop: 09/10/18 20:59 Last Admin: 07/14/18 20:56 Dose: 5 mg Dorzolamide/Timolol (Cosopt Ophth Soln) 1 drop EACH EYE HS [facility] Stop: 09/10/18 20:59 Last Admin: 07/14/18 20:56 Dose: Not Given Lorazepam (Ativan) 0.5 mg PO Q4HR PRN; Protocol PRN Reason: Anxiety Stop: 08/11/18 00:57 Magnesium Hydroxide (Milk Of Magnesia) 30 ml PO HS PRN PRN Reason: Constipation Magnesium Hydroxide (Milk Of Magnesia) 30 ml PO HS PRN PRN Reason: Constipation Stop: 09/10/18 08:22 Memantine (Namenda) 5 mg PO HS [facility] Stop: 09/11/18 20:59 Last Admin: 07/14/18 20:56 Dose: 5 mg Multivitamins/Vitamin C (Theragran) 1 tab PO DAILY [facility] Stop: 09/10/18 08:59 Last Admin: 07/15/18 09:28 Dose: Not Given Quetiapine Fumarate (Seroquel) 12.5 mg PO BID [facility]; Protocol Stop: 09/12/18 16:59 Last Admin: 07/15/18 09:37 Dose: Not Given Zolpidem Tartrate (Ambien) 5 mg PO HS PRN PRN Reason: Insomnia Stop: 09/10/18 00:57 HEENT: NC/AT, PERRLA Neck: Supple Lungs: CTAB Cardiovascular: RRR, Normal S1, Normal S2, without murmur Abdomen: soft, non-tender, non-distended, positive bowel sound Neurological: alert Internal Medicine Assmt/Plan - Assessment Assessment: Hypokalemia, hypertension, asthma, chronic obstructive pulmonary disease, hypothyroidism, dysphagia, aggressive behavior, history of frequent falls. . - Plan Plan: will add megace fall precautions prn o2 continue current plan of care Nutritional Asmnt/Malnutr-PDOC - Dietary Evaluation Malnutrition Findings (Please click <Entered> for more info): Nutritional Asmnt/Malnutrition Start: 07/15/18 11: 06 Text: Status: Active Freq: Protocol: Document 07/15/18 11:06 RITCHIE (Rec: 07/15/18 11:30 RITCHIE RICHARDSON- [email or web address]) Nutritional Asmnt/Malnutrition Patient General Information Nutritional Screening Moderate Risk Diagnosis Psychosis NOS Pertinent Medical Hx/Surgical Hx HTN, asthma, COPD, hypothyroidism, dysphagia, glaucoma, syncope episodes, frequent Subjective Information [facility]. Per nursing notes, "pt remains isolated, withdrawn, depressed, suspicious, guarded, poor appetite". Current Diet Order/ Nutrition Support Regular Patient / S.O Not Indicated Pertinent Medications maalox, MOM, Theragran Pertinent Labs (07/11) K 3.4, albumin 3.5 Nutritional Hx/Data Height 5 ft 6 in Height (Calculated Centimeters) 167.6 Current Weight (lbs) 135 lb Weight (Calculated Kilograms) 61.2 Weight (Calculated Grams) 93511.0 [place] Body Weight 130 % [place] Body Weight 103 Body Mass Index (BMI) 21.7 Weight Status Approriate GI Symptoms GI Symptoms None Last BM 07/14x 2 Difficult in: None Food Allergies No Cultural/Ethnic/[employer] Belief None indicated Usual diet at home unknown Skin Integrity/Comment: William 16, intact Current %PO Poor (25-49%) Estimated Nutritional Goals BEE in Kcals: Using Current wt Calories/Kcals/Kg 61.3 kg 25-30 kcal/kg Kcals Calculated ~9246-8718 kcal/day Protein: Using Current wt Protein g/k gm/kg Protein Calculated 60 gm/day Fluid: ml ~8611-7344 ml/day Nutritional Problem 2. Problem Problem Altered nutrition related lab values related to Etiology electrolyte imbalance aeb Signs/Symptoms: K 3.4 1. Problem Problem Inadequate oral intake related to Etiology possible poor appetite aeb Signs/Symptoms: oral intake <50% of meals Intervention/Recommendation Comments 1. Continue regular diet as tolerated by patient. 2. Encourage oral intake and assist with meals as needed. 3. Provide Ensure Enlive BID to supplement oral caloric intake (also a source of potassium). Expected Outcomes/Goals Expected Outcomes/Goals Oral intake >75% of meals, weight stable, nutrition related labs WNL F/U in 3-5 days as MR ()
--- NOTE | 2018-07-15 23:32 | Progress Notes ---
DATE: 07/15/2018 Case was discussed with staff of the patient, reviewed records. Covering for Dr. Tate. This is a well-known case to me as I have seen him before covering for Dr. Tate. The patient is refusing to take her medication, isolating herself, continues to be irritable, severely agitated, would not answer my questions appropriately, responding to internal stimuli, paranoid, suspicious with severe mood swings with episodes of yelling and screaming. Continues to have poor insight. Unable to participate in a meaningful conversation and so far it is hard to adjust her medication when she is refusing to take it. I tried talk about taking it, but she would not respond to me and we will continue outpatient group therapy, milieu therapy, and adjust medication as needed. JOB# [id number]
[2018-07-16 06:54] LABS: % BASOPHILS 0.7 % (0.0-2.0); % MONOCYTES 10.9 % (2.0-10.0); % NEUTROPHILS 55.4 % (40.0-80.0); BASOPHILE ABSOLUTE 0.1 Th/cumm (0-0.2); EOSINOPHILE ABSOLUTE 0.2 Th/cmm (0.1-0.4); HEMATOCRIT 49.8 % (41.0-60); HEMOGLOBIN 17.2 gm/dL (12-16); LYMPHOCYTE ABSOLUTE 2.9 Th/cmm (1.5-3.0); MEAN CELL VOLUME 86.2 fl (81-100); MEAN CORPUSCULAR HEMOGLOBIN 29.7 pg (27.0-31.0); MEAN CORPUSCULAR HGB CONC 34.4 pg (28.0-36.0); MEAN PLATELET VOLUME 8.5 fl; PLATELET COUNT 265 Th/cmm (150-400); RED BLOOD COUNT 5.78 Mil/cmm (3.80-5.20); WHITE BLOOD COUNT 9.2 Th/cmm (4.8-10.8)
[2018-07-16] MEDS: Albuterol Nebulizer 2.5mg/3mL HHN SCH ×3 (07:21→15:08)
[2018-07-16 08:39] LABS: ANION GAP 12.5 (7.0-16.0); BUN - UREA NITROGEN 19 mg/dL (7-25); CALCIUM SERUM 9.3 mg/dL (8.6-10.3); CHLORIDE 104 mEq/L (98-107); GLUCOSE 86 mg/dL (70-105); POTASSIUM SERUM 4.5 mEq/L (3.5-5.1); SODIUM SERUM 137 mEq/L (136-145)
[2018-07-16] MEDS: Multivitamin Tab PO SCH (09:58)
--- NOTE | 2018-07-16 13:11 | Internal Medicine Prog Note ---
Internal Medicine Subjective - Subjective Service Date: 07/16/18 (eating a little but much better compared to previous days) Patient is:: awake, interactive Per staff patient has:: tolerating meds Internal Medicine Objective - Results Result Diagrams: 07/16/18 06:42 07/16/18 06:42 Recent Labs: Laboratory Last Values WBC 9.2 Th/cmm (4.8-10.8) 07/16/18 06:42 RBC 5.78 Mil/cmm (3.80-5.20) H 07/16/18 06:42 Hgb 17.2 gm/dL (12-16) 07/16/18 06:42 Hct 49.8 % (41.0-60) 07/16/18 06:42 MCV 86.2 fl (81-100) 07/16/18 06:42 MCH 29.7 pg (27.0-31.0) 07/16/18 06:42 MCHC Differential 34.4 pg (28.0-36.0) 07/16/18 06:42 RDW 14.0 % (11.5-20.0) 07/16/18 06:42 Plt Count 265 Th/cmm (150-400) 07/16/18 06:42 MPV 8.5 fl 07/16/18 06:42 Neutrophils % 55.4 % (40.0-80.0) 07/16/18 06:42 Lymphocytes % 31.0 % (20.0-50.0) 07/16/18 06:42 Monocytes % 10.9 % (2.0-10.0) H 07/16/18 06:42 Eosinophils % 2.0 % (0.0-5.0) 07/16/18 06:42 Basophils % 0.7 % (0.0-2.0) 07/16/18 06:42 Sodium 137 mEq/L (136-145) 07/16/18 06:42 Potassium 4.5 mEq/L (3.5-5.1) 07/16/18 06:42 Chloride 104 mEq/L (98-107) 07/16/18 06:42 Carbon Dioxide 25.0 mEq/L (21.0-31.0) 07/16/18 06:42 Anion Gap 12.5 (7.0-16.0) 07/16/18 06:42 BUN 19 mg/dL (7-25) 07/16/18 06:42 Creatinine 1.0 mg/dL (0.6-1.2) 07/16/18 06:42 Est GFR ( Amer) TNP 07/16/18 06:42 Est GFR (Non-Af Amer) TNP 07/16/18 06:42 BUN/Creatinine Ratio 19.0 07/16/18 06:42 Glucose 86 mg/dL (70-105) 07/16/18 06:42 Calcium 9.3 mg/dL (8.6-10.3) 07/16/18 06:42 Total Bilirubin 0.4 mg/dL (0.3-1.0) 07/11/18 21:50 AST 22 U/L (13-39) 07/11/18 21:50 ALT 12 U/L (7-52) 07/11/18 21:50 Alkaline Phosphatase 62 U/L (34-104) 07/11/18 21:50 Troponin I 0.03 ng/mL (0.01-0.05) 07/11/18 21:50 B-Natriuretic Peptide 77.1 pg/mL (5.0-100.0) 07/11/18 21:50 Total Protein 6.9 gm/dL (6.0-8.3) 07/11/18 21:50 Albumin 3.5 gm/dL (3.7-5.3) L 07/11/18 21:50 Globulin 3.4 gm/dL 07/11/18 21:50 Albumin/Globulin Ratio 1.0 (1.0-1.8) 07/11/18 21:50 Triglycerides 129 mg/dL (<150) 07/12/18 07:10 Cholesterol 188 mg/dL (<200) 07/12/18 07:10 LDL Cholesterol Direct 125 mg/dL (75-193) 07/12/18 07:10 HDL Cholesterol 45 mg/dL (23-92) 07/12/18 07:10 TSH 2.14 uIU/ml (0.34-5.60) 07/11/18 21:50 RPR NONREACTIVE (NONREACTIVE) 07/11/18 21:50 - Physical Exam Vitals and I&O: Vital Signs Temp 97.9 F 11/18/18 05:56 Pulse 76 07/16/18 10:46 Resp 14 07/16/18 10:46 BP 115/81 07/16/18 05:56 Pulse Ox 93 07/16/18 10:46 Intake & Output 07/15/18 07/16/18 07/16/18 18:59 06:59 18:59 Other: # Voids 1 # Bowel Movements 0 Stool Characteristics Soft Active Medications: Current Medications Acetaminophen (Tylenol) 650 mg PO Q4HR PRN PRN Reason: Mild Pain / Temp above 100 Stop: 09/10/18 00:57 Acetaminophen (Tylenol) 650 mg PO Q6H PRN PRN Reason: Pain (Mild) Stop: 09/10/18 08:22 Al Hydrox/Mg Hydrox/Simethicone (Maalox) 30 ml PO Q4HR PRN PRN Reason: GI DISTRESS Stop: 09/10/18 00:57 Albuterol Sulfate (Albuterol 2.5mg/3ml Neb Ud) 2.5 mg HHN QIDRT [facility] Stop: 09/10/18 10:59 Last Admin: 07/16/18 10:45 Dose: Not Given Donepezil HCl (Aricept) 5 mg PO HS [facility] Stop: 09/10/18 20:59 Last Admin: 07/15/18 21:19 Dose: 5 mg Dorzolamide/Timolol (Cosopt Ophth Soln) 1 drop EACH EYE HS [facility] Stop: 09/10/18 20:59 Last Admin: 07/15/18 21:42 Dose: Not Given Lorazepam (Ativan) 0.5 mg PO Q4HR PRN; Protocol PRN Reason: Anxiety Stop: 08/11/18 00:57 Magnesium Hydroxide (Milk Of Magnesia) 30 ml PO HS PRN PRN Reason: Constipation Magnesium Hydroxide (Milk Of Magnesia) 30 ml PO HS PRN PRN Reason: Constipation Stop: 09/10/18 08:22 Megestrol Acetate (Megace) 400 mg PO DAILY [facility]; Protocol Stop: 09/14/18 08:59 Last Admin: 07/16/18 12:41 Dose: 400 mg Memantine (Namenda) 5 mg PO HS [facility] Stop: 09/11/18 20:59 Last Admin: 07/15/18 21:19 Dose: 5 mg Multivitamins/Vitamin C (Theragran) 1 tab PO DAILY [facility] Stop: 09/10/18 08:59 Last Admin: 07/16/18 09:58 Dose: 1 tab Quetiapine Fumarate (Seroquel) 12.5 mg PO BID [facility]; Protocol Stop: 09/12/18 16:59 Last Admin: 07/16/18 09:57 Dose: 12.5 mg Zolpidem Tartrate (Ambien) 5 mg PO HS PRN PRN Reason: Insomnia Stop: 09/10/18 00:57 HEENT: NC/AT, PERRLA Neck: Supple Lungs: CTAB Cardiovascular: RRR, Normal S1, Normal S2, without murmur Abdomen: soft, non-tender, non-distended, positive bowel sound Neurological: alert Internal Medicine Assmt/Plan - Assessment Assessment: Hypokalemia, hypertension, asthma, chronic obstructive pulmonary disease, hypothyroidism, dysphagia, aggressive behavior, history of frequent falls. . - Plan Plan: continue with megace calorie count fall precautions prn o2 continue current plan of care Nutritional Asmnt/Malnutr-PDOC - Dietary Evaluation Malnutrition Findings (Please click <Entered> for more info): Nutritional Asmnt/Malnutrition Start: 07/15/18 11: 06 Text: Status: Complete Freq: Protocol: Document 07/15/18 11:06 RITCHIE (Rec: 07/15/18 11:30 RITCHIE RICHARDSON- [email or web address]) Nutritional Asmnt/Malnutrition Patient General Information Nutritional Screening Moderate Risk Diagnosis Psychosis NOS Pertinent Medical Hx/Surgical Hx HTN, asthma, COPD, hypothyroidism, dysphagia, glaucoma, syncope episodes, frequent Subjective Information Patient was admitted from long-term. Per nursing notes, "pt remains isolated, withdrawn, depressed, suspicious, guarded, poor appetite". Current Diet Order/ Nutrition Support Regular Patient / S.O Not Indicated Pertinent Medications maalox, MOM, Theragran Pertinent Labs (07/11) K 3.4, albumin 3.5 Nutritional Hx/Data Height 5 ft 6 in Height (Calculated Centimeters) 167.6 Current Weight (lbs) 135 lb Weight (Calculated Kilograms) 61.2 Weight (Calculated Grams) 68542.0 [place] Body Weight 130 % [place] Body Weight 103 Body Mass Index (BMI) 21.7 Weight Status Approriate GI Symptoms GI Symptoms None Last BM 07/14x 2 Difficult in: None Food Allergies No Cultural/Ethnic/Ad[employer]ism Belief None indicated Usual diet at home unknown Skin Integrity/Comment: William 16, intact Current %PO Poor (25-49%) Estimated Nutritional Goals BEE in Kcals: Using Current wt Calories/Kcals/Kg 61.3 kg 25-30 kcal/kg Kcals Calculated ~7985-0725 kcal/day Protein: Using Current wt Protein g/k gm/kg Protein Calculated 60 gm/day Fluid: ml ~6386-9299 ml/day Nutritional Problem 2. Problem Problem Altered nutrition related lab values related to Etiology electrolyte imbalance aeb Signs/Symptoms: K 3.4 1. Problem Problem Inadequate oral intake related to Etiology possible poor appetite aeb Signs/Symptoms: oral intake <50% of meals Intervention/Recommendation Comments 1. Continue regular diet as tolerated by patient. 2. Encourage oral intake and assist with meals as needed. 3. Provide Ensure Enlive BID to supplement oral caloric intake (also a source of potassium). Expected Outcomes/Goals Expected Outcomes/Goals Oral intake >75% of meals, weight stable, nutrition related labs WNL F/U in 3-5 days as MR ()
--- NOTE | 2018-07-16 20:57 | Progress Notes ---
DATE: 07/16/2018 Case was discussed with staff of the patient, reviewed records. The patient continues to stay in bed, isolating herself, and refusing to take medications. Continues to be easily agitated, irritable, responding to internal stimuli, suspicious, paranoid, severe mood swings unpredictable, and impulsive. She is not taking her medications. It is hard to adjust medications when she is not taking it. We will continue to work with the patient in group therapy, milieu therapy, and adjust the medication as needed. JOB# [id number]
[2018-07-17] MEDS: Albuterol Nebulizer 2.5mg/3mL HHN SCH ×4 (07:38→18:47)
[2018-07-17] MEDS: Multivitamin Tab PO SCH (09:22)
--- NOTE | 2018-07-17 10:41 | Internal Medicine Prog Note ---
Internal Medicine Subjective - Subjective Service Date: 07/17/18 (ate breakfast today ) Patient is:: awake, interactive Per staff patient has:: tolerating meds Internal Medicine Objective - Results Result Diagrams: 07/16/18 06:42 07/16/18 06:42 Recent Labs: Laboratory Last Values WBC 9.2 Th/cmm (4.8-10.8) 07/16/18 06:42 RBC 5.78 Mil/cmm (3.80-5.20) H 07/16/18 06:42 Hgb 17.2 gm/dL (12-16) 07/16/18 06:42 Hct 49.8 % (41.0-60) 07/16/18 06:42 MCV 86.2 fl (81-100) 07/16/18 06:42 MCH 29.7 pg (27.0-31.0) 07/16/18 06:42 MCHC Differential 34.4 pg (28.0-36.0) 07/16/18 06:42 RDW 14.0 % (11.5-20.0) 07/16/18 06:42 Plt Count 265 Th/cmm (150-400) 07/16/18 06:42 MPV 8.5 fl 07/16/18 06:42 Neutrophils % 55.4 % (40.0-80.0) 07/16/18 06:42 Lymphocytes % 31.0 % (20.0-50.0) 07/16/18 06:42 Monocytes % 10.9 % (2.0-10.0) H 07/16/18 06:42 Eosinophils % 2.0 % (0.0-5.0) 07/16/18 06:42 Basophils % 0.7 % (0.0-2.0) 07/16/18 06:42 Sodium 137 mEq/L (136-145) 07/16/18 06:42 Potassium 4.5 mEq/L (3.5-5.1) 07/16/18 06:42 Chloride 104 mEq/L (98-107) 07/16/18 06:42 Carbon Dioxide 25.0 mEq/L (21.0-31.0) 07/16/18 06:42 Anion Gap 12.5 (7.0-16.0) 07/16/18 06:42 BUN 19 mg/dL (7-25) 07/16/18 06:42 Creatinine 1.0 mg/dL (0.6-1.2) 07/16/18 06:42 Est GFR ( Amer) TNP 07/16/18 06:42 Est GFR (Non-Af Amer) TNP 07/16/18 06:42 BUN/Creatinine Ratio 19.0 07/16/18 06:42 Glucose 86 mg/dL (70-105) 07/16/18 06:42 Calcium 9.3 mg/dL (8.6-10.3) 07/16/18 06:42 Total Bilirubin 0.4 mg/dL (0.3-1.0) 07/11/18 21:50 AST 22 U/L (13-39) 07/11/18 21:50 ALT 12 U/L (7-52) 07/11/18 21:50 Alkaline Phosphatase 62 U/L (34-104) 07/11/18 21:50 Troponin I 0.03 ng/mL (0.01-0.05) 07/11/18 21:50 B-Natriuretic Peptide 77.1 pg/mL (5.0-100.0) 07/11/18 21:50 Total Protein 6.9 gm/dL (6.0-8.3) 07/11/18 21:50 Albumin 3.5 gm/dL (3.7-5.3) L 07/11/18 21:50 Globulin 3.4 gm/dL 07/11/18 21:50 Albumin/Globulin Ratio 1.0 (1.0-1.8) 07/11/18 21:50 Triglycerides 129 mg/dL (<150) 07/12/18 07:10 Cholesterol 188 mg/dL (<200) 07/12/18 07:10 LDL Cholesterol Direct 125 mg/dL (75-193) 07/12/18 07:10 HDL Cholesterol 45 mg/dL (23-92) 07/12/18 07:10 TSH 2.14 uIU/ml (0.34-5.60) 07/11/18 21:50 RPR NONREACTIVE (NONREACTIVE) 07/11/18 21:50 - Physical Exam Vitals and I&O: Vital Signs Temp 98.2 F 07/17/18 06:21 Pulse 71 07/17/18 07:38 Resp 16 11/19/18 07:38 BP 107/57 07/17/18 06:21 Pulse Ox 92 07/17/18 07:38 Intake & Output 07/16/18 07/17/18 07/17/18 18:59 06:59 18:59 Intake Total 800 120 Balance 800 120 Intake: Oral 800 120 Other: # Voids 3 3 # Bowel Movements 0 Stool Characteristics Soft Active Medications: Current Medications Acetaminophen (Tylenol) 650 mg PO Q4HR PRN PRN Reason: Mild Pain / Temp above 100 Stop: 09/10/18 00:57 Acetaminophen (Tylenol) 650 mg PO Q6H PRN PRN Reason: Pain (Mild) Stop: 09/10/18 08:22 Al Hydrox/Mg Hydrox/Simethicone (Maalox) 30 ml PO Q4HR PRN PRN Reason: GI DISTRESS Stop: 09/10/18 00:57 Albuterol Sulfate (Albuterol 2.5mg/3ml Neb Ud) 2.5 mg HHN QIDRT [facility] Stop: 09/10/18 10:59 Last Admin: 07/17/18 07:38 Dose: Not Given Donepezil HCl (Aricept) 5 mg PO HS [facility] Stop: 09/10/18 20:59 Last Admin: 07/16/18 21:13 Dose: 5 mg Dorzolamide/Timolol (Cosopt Ophth Soln) 1 drop EACH EYE HS [facility] Stop: 09/10/18 20:59 Last Admin: 07/16/18 21:39 Dose: Not Given Lorazepam (Ativan) 0.5 mg PO Q4HR PRN; Protocol PRN Reason: Anxiety Stop: 08/11/18 00:57 Last Admin: 07/17/18 01:41 Dose: 0.5 mg Magnesium Hydroxide (Milk Of Magnesia) 30 ml PO HS PRN PRN Reason: Constipation Magnesium Hydroxide (Milk Of Magnesia) 30 ml PO HS PRN PRN Reason: Constipation Stop: 09/10/18 08:22 Megestrol Acetate (Megace) 400 mg PO DAILY [facility]; Protocol Stop: 09/14/18 08:59 Last Admin: 07/17/18 09:22 Dose: 400 mg Memantine (Namenda) 5 mg PO HS [facility] Stop: 09/11/18 20:59 Last Admin: 07/16/18 21:14 Dose: 5 mg Multivitamins/Vitamin C (Theragran) 1 tab PO DAILY [facility] Stop: 09/10/18 08:59 Last Admin: 07/17/18 09:22 Dose: 1 tab Quetiapine Fumarate (Seroquel) 12.5 mg PO BID [facility]; Protocol Stop: 09/12/18 16:59 Last Admin: 07/17/18 09:22 Dose: 12.5 mg Zolpidem Tartrate (Ambien) 5 mg PO HS PRN PRN Reason: Insomnia Stop: 09/10/18 00:57 Last Admin: 07/16/18 21:14 Dose: 5 mg HEENT: NC/AT, PERRLA Neck: Supple Lungs: CTAB Cardiovascular: RRR, Normal S1, Normal S2, without murmur Abdomen: soft, non-tender, non-distended, positive bowel sound Neurological: alert Internal Medicine Assmt/Plan - Assessment Assessment: Hypokalemia, hypertension, asthma, chronic obstructive pulmonary disease, hypothyroidism, dysphagia, aggressive behavior, history of frequent falls. . - Plan Plan: continue with megace calorie count fall precautions prn o2 continue current plan of care Nutritional Asmnt/Malnutr-PDOC - Dietary Evaluation Malnutrition Findings (Please click <Entered> for more info): Nutritional Asmnt/Malnutrition Start: 07/15/18 11: 06 Text: Status: Complete Freq: Protocol: Document 07/15/18 11:06 RITCHIE (Rec: 07/15/18 11:30 RITCHIE DYLAN- [email or web address]) Nutritional Asmnt/Malnutrition Patient General Information Nutritional Screening Moderate Risk Diagnosis Psychosis NOS Pertinent Medical Hx/Surgical Hx HTN, asthma, COPD, hypothyroidism, dysphagia, glaucoma, syncope episodes, frequent Subjective Information Patient was admitted from long term. Per nursing notes, "pt remains isolated, withdrawn, depressed, suspicious, guarded, poor appetite". Current Diet Order/ Nutrition Support Regular Patient / S.O Not Indicated Pertinent Medications maalox, MOM, Theragran Pertinent Labs (07/11) K 3.4, albumin 3.5 Nutritional Hx/Data Height 5 ft 6 in Height (Calculated Centimeters) 167.6 Current Weight (lbs) 135 lb Weight (Calculated Kilograms) 61.2 Weight (Calculated Grams) 96196.0 [place] Body Weight 130 % [place] Body Weight 103 Body Mass Index (BMI) 21.7 Weight Status Approriate GI Symptoms GI Symptoms None Last BM 07/14x 2 Difficult in: None Food Allergies No Cultural/Ethnic/Ad[employer]ist Belief None indicated Usual diet at home unknown Skin Integrity/Comment: William 16, intact Current %PO Poor (25-49%) Estimated Nutritional Goals BEE in Kcals: Using Current wt Calories/Kcals/Kg 61.3 kg 25-30 kcal/kg Kcals Calculated ~7514-3749 kcal/day Protein: Using Current wt Protein g/k gm/kg Protein Calculated 60 gm/day Fluid: ml ~3161-6177 ml/day Nutritional Problem 2. Problem Problem Altered nutrition related lab values related to Etiology electrolyte imbalance aeb Signs/Symptoms: K 3.4 1. Problem Problem Inadequate oral intake related to Etiology possible poor appetite aeb Signs/Symptoms: oral intake <50% of meals Intervention/Recommendation Comments 1. Continue regular diet as tolerated by patient. 2. Encourage oral intake and assist with meals as needed. 3. Provide Ensure Enlive BID to supplement oral caloric intake (also a source of potassium). Expected Outcomes/Goals Expected Outcomes/Goals Oral intake >75% of meals, weight stable, nutrition related labs WNL F/U in 3-5 days as MR (07/18- )
--- NOTE | 2018-07-18 01:39 | Progress Notes ---
DATE: SUBJECTIVE: Chart reviewed and the patient interviewed. Also discussed the patient's condition with the staff and reviewed records and labs. The patient is still in irritable and angry mood. The patient also is still easily agitated. She also is still having severe mood swings and she is still needs redirections. Otherwise, the patient is compliant with taking her medications with no side effects of medications. ASSESSMENT: The patient is still agitated and is still confused. TREATMENT PLAN: We will continue to monitor her behavior and her condition. Also, increase Seroquel to 25 mg twice a day. Also, continue to adjust psychotropic medications and follow up closely. JOB# [id number]
[2018-07-18] MEDS: Albuterol Nebulizer 2.5mg/3mL HHN SCH ×4 (07:02→18:35)
[2018-07-18] MEDS: Multivitamin Tab PO SCH (09:06)
--- NOTE | 2018-07-18 13:30 | Internal Medicine Prog Note ---
Internal Medicine Subjective - Subjective Patient seen and examined:: with staff, chart reviewed Patient is:: awake, interactive, denies any new complaints Per staff patient has:: no adverse event, no episodes of fall, tolerating meds Internal Medicine Objective - Results Result Diagrams: 07/16/18 06:42 07/16/18 06:42 Recent Labs: Laboratory Last Values WBC 9.2 Th/cmm (4.8-10.8) 07/16/18 06:42 RBC 5.78 Mil/cmm (3.80-5.20) H 07/16/18 06:42 Hgb 17.2 gm/dL (12-16) 07/16/18 06:42 Hct 49.8 % (41.0-60) 07/16/18 06:42 MCV 86.2 fl (81-100) 07/16/18 06:42 MCH 29.7 pg (27.0-31.0) 07/16/18 06:42 MCHC Differential 34.4 pg (28.0-36.0) 07/16/18 06:42 RDW 14.0 % (11.5-20.0) 07/16/18 06:42 Plt Count 265 Th/cmm (150-400) 07/16/18 06:42 MPV 8.5 fl 07/16/18 06:42 Neutrophils % 55.4 % (40.0-80.0) 07/16/18 06:42 Lymphocytes % 31.0 % (20.0-50.0) 07/16/18 06:42 Monocytes % 10.9 % (2.0-10.0) H 07/16/18 06:42 Eosinophils % 2.0 % (0.0-5.0) 07/16/18 06:42 Basophils % 0.7 % (0.0-2.0) 07/16/18 06:42 Sodium 137 mEq/L (136-145) 07/16/18 06:42 Potassium 4.5 mEq/L (3.5-5.1) 07/16/18 06:42 Chloride 104 mEq/L (98-107) 07/16/18 06:42 Carbon Dioxide 25.0 mEq/L (21.0-31.0) 07/16/18 06:42 Anion Gap 12.5 (7.0-16.0) 07/16/18 06:42 BUN 19 mg/dL (7-25) 07/16/18 06:42 Creatinine 1.0 mg/dL (0.6-1.2) 07/16/18 06:42 Est GFR ( Amer) TNP 07/16/18 06:42 Est GFR (Non-Af Amer) TNP 07/16/18 06:42 BUN/Creatinine Ratio 19.0 07/16/18 06:42 Glucose 86 mg/dL (70-105) 07/16/18 06:42 Calcium 9.3 mg/dL (8.6-10.3) 07/16/18 06:42 Total Bilirubin 0.4 mg/dL (0.3-1.0) 07/11/18 21:50 AST 22 U/L (13-39) 07/11/18 21:50 ALT 12 U/L (7-52) 07/11/18 21:50 Alkaline Phosphatase 62 U/L (34-104) 07/11/18 21:50 Troponin I 0.03 ng/mL (0.01-0.05) 07/11/18 21:50 B-Natriuretic Peptide 77.1 pg/mL (5.0-100.0) 07/11/18 21:50 Total Protein 6.9 gm/dL (6.0-8.3) 07/11/18 21:50 Albumin 3.5 gm/dL (3.7-5.3) L 07/11/18 21:50 Globulin 3.4 gm/dL 07/11/18 21:50 Albumin/Globulin Ratio 1.0 (1.0-1.8) 07/11/18 21:50 Triglycerides 129 mg/dL (<150) 07/12/18 07:10 Cholesterol 188 mg/dL (<200) 07/12/18 07:10 LDL Cholesterol Direct 125 mg/dL (75-193) 07/12/18 07:10 HDL Cholesterol 45 mg/dL (23-92) 07/12/18 07:10 TSH 2.14 uIU/ml (0.34-5.60) 07/11/18 21:50 RPR NONREACTIVE (NONREACTIVE) 07/11/18 21:50 - Physical Exam Vitals and I&O: Vital Signs Temp 97.9 F 07/18/18 06:39 Pulse 72 07/18/18 11:44 Resp 18 07/18/18 12:51 BP 156/72 07/18/18 06:39 Pulse Ox 94 07/18/18 11:44 Intake & Output 07/17/18 07/18/18 07/18/18 18:59 06:59 18:59 Intake Total 700 240 Output Total 1 Balance 700 239 Intake: Oral 700 240 Output: Urine/Stool Mix 1 Other: # Voids 3 1 # Bowel Movements 0 0 Active Medications: Current Medications Acetaminophen (Tylenol) 650 mg PO Q4HR PRN PRN Reason: Mild Pain / Temp above 100 Stop: 09/10/18 00:57 Acetaminophen (Tylenol) 650 mg PO Q6H PRN PRN Reason: Pain (Mild) Stop: 09/10/18 08:22 Al Hydrox/Mg Hydrox/Simethicone (Maalox) 30 ml PO Q4HR PRN PRN Reason: GI DISTRESS Stop: 09/10/18 00:57 Albuterol Sulfate (Albuterol 2.5mg/3ml Neb Ud) 2.5 mg HHN QIDRT [facility] Stop: 09/10/18 10:59 Last Admin: 07/18/18 11:44 Dose: Not Given Donepezil HCl (Aricept) 5 mg PO HS [facility] Stop: 09/10/18 20:59 Last Admin: 07/17/18 21:19 Dose: 5 mg Dorzolamide/Timolol (Cosopt Ophth Soln) [address] [facility] Stop: 09/10/18 20:59 Last Admin: 07/17/18 21:32 Dose: Not Given Lorazepam (Ativan) 0.5 mg PO Q4HR PRN; Protocol PRN Reason: Anxiety Stop: 08/11/18 00:57 Last Admin: 07/17/18 01:41 Dose: 0.5 mg Magnesium Hydroxide (Milk Of Magnesia) 30 ml PO HS PRN PRN Reason: Constipation Magnesium Hydroxide (Milk Of Magnesia) 30 ml PO HS PRN PRN Reason: Constipation Stop: 09/10/18 08:22 Megestrol Acetate (Megace) 400 mg PO DAILY [facility]; Protocol Stop: 09/14/18 08:59 Last Admin: 07/18/18 09:06 Dose: Not Given Memantine (Namenda) 5 mg PO HS [facility] Stop: 09/11/18 20:59 Last Admin: 07/17/18 21:19 Dose: 5 mg Multivitamins/Vitamin C (Theragran) 1 tab PO DAILY [facility] Stop: 09/10/18 08:59 Last Admin: 07/18/18 09:06 Dose: Not Given Quetiapine Fumarate (Seroquel) 25 mg PO BID [facility]; Protocol Stop: 09/15/18 16:59 Last Admin: 07/18/18 09:06 Dose: 25 mg Zolpidem Tartrate (Ambien) 5 mg PO HS PRN PRN Reason: Insomnia Stop: 09/10/18 00:57 Last Admin: 07/17/18 21:20 Dose: 5 mg HEENT: NC/AT, PERRLA Neck: Supple Lungs: CTAB Cardiovascular: RRR, Normal S1, Normal S2, without murmur Abdomen: soft, non-tender, non-distended, positive bowel sound Extremities: excoriation Neurological: no change Internal Medicine Assmt/Plan - Assessment Assessment: Assessment: Hypokalemia, hypertension, asthma, chronic obstructive pulmonary disease, hypothyroidism, dysphagia, aggressive behavior, history of frequent falls. - Plan Plan: - Plan Plan: continue with megace calorie count fall precautions prn o2 cont on synthroid continue current plan of care Nutritional Asmnt/Malnutr-PDOC - Dietary Evaluation Malnutrition Findings (Please click <Entered> for more info): Nutritional Asmnt/Malnutrition Start: 07/15/18 11: 06 Text: Status: Complete Freq: Protocol: Document 07/15/18 11:06 RITCHIE (Rec: 07/15/18 11:30 [email or web address] RICHARDSON- [email or web address]) Nutritional Asmnt/Malnutrition Patient General Information Nutritional Screening Moderate Risk Diagnosis Psychosis NOS Pertinent Medical Hx/Surgical Hx HTN, asthma, COPD, hypothyroidism, dysphagia, glaucoma, syncope episodes, frequent Subjective Information Patient was admitted from skilled nursing. Per nursing notes, "pt remains isolated, withdrawn, depressed, suspicious, guarded, poor appetite". Current Diet Order/ Nutrition Support Regular Patient / S.O Not Indicated Pertinent Medications maalox, MOM, Theragran Pertinent Labs (07/11) K 3.4, albumin 3.5 Nutritional Hx/Data Height 1.68 m Height (Calculated Centimeters) 167.6 Current Weight (lbs) 61.235 kg Weight (Calculated Kilograms) 61.2 Weight (Calculated Grams) 93657.0 [place] Body Weight 130 % [place] Body Weight 103 Body Mass Index (BMI) 21.7 Weight Status Approriate GI Symptoms GI Symptoms None Last BM 07/14x 2 Difficult in: None Food Allergies No Cultural/Ethnic/Advent Belief None indicated Usual diet at home unknown Skin Integrity/Comment: William 16, intact Current %PO Poor (25-49%) Estimated Nutritional Goals BEE in Kcals: Using Current wt Calories/Kcals/Kg 61.3 kg 25-30 kcal/kg Kcals Calculated ~8981-0560 kcal/day Protein: Using Current wt Protein g/k gm/kg Protein Calculated 60 gm/day Fluid: ml ~5568-7978 ml/day Nutritional Problem 2. Problem Problem Altered nutrition related lab values related to Etiology electrolyte imbalance aeb Signs/Symptoms: K 3.4 1. Problem Problem Inadequate oral intake related to Etiology possible poor appetite aeb Signs/Symptoms: oral intake <50% of meals Intervention/Recommendation Comments 1. Continue regular diet as tolerated by patient. 2. Encourage oral intake and assist with meals as needed. 3. Provide Ensure Enlive BID to supplement oral caloric intake (also a source of potassium). Expected Outcomes/Goals Expected Outcomes/Goals Oral intake >75% of meals, weight stable, nutrition related labs WNL F/U in 3-5 days as MR (07/18- )
--- NOTE | 2018-07-18 21:37 | Progress Notes ---
DATE: Chart reviewed and the patient interviewed. Also discussed the patient's condition with the staff and reviewed records and labs. The patient continues to be in angry mood and she is still anxious. The patient also is still responding to stimuli. The patient also has been suspicious and slightly paranoid. Otherwise, the patient is compliant with taking her medications with no side effects of medications. ASSESSMENT: The patient is still angry and is still in irritable mood. TREATMENT PLAN: Continue to monitor behavior and condition closely. Also, continue to work on her irritable mood and ineffective coping and continue to followup. JOB# [id number]
[2018-07-19] MEDS: Albuterol Nebulizer 2.5mg/3mL HHN SCH ×4 (09:08→21:09)
[2018-07-19] MEDS: Multivitamin Tab PO SCH ×2 (10:00)
--- NOTE | 2018-07-19 13:19 | Internal Medicine Prog Note ---
Internal Medicine Subjective - Subjective Patient seen and examined:: with staff, chart reviewed Patient is:: awake, interactive, denies any new complaints Per staff patient has:: no adverse event, no episodes of fall, tolerating meds Internal Medicine Objective - Results Result Diagrams: 07/16/18 06:42 07/16/18 06:42 Recent Labs: Laboratory Last Values WBC 9.2 Th/cmm (4.8-10.8) 07/16/18 06:42 RBC 5.78 Mil/cmm (3.80-5.20) H 07/16/18 06:42 Hgb 17.2 gm/dL (12-16) 07/16/18 06:42 Hct 49.8 % (41.0-60) 07/16/18 06:42 MCV 86.2 fl (81-100) 07/16/18 06:42 MCH 29.7 pg (27.0-31.0) 07/16/18 06:42 MCHC Differential 34.4 pg (28.0-36.0) 07/16/18 06:42 RDW 14.0 % (11.5-20.0) 07/16/18 06:42 Plt Count 265 Th/cmm (150-400) 07/16/18 06:42 MPV 8.5 fl 07/16/18 06:42 Neutrophils % 55.4 % (40.0-80.0) 07/16/18 06:42 Lymphocytes % 31.0 % (20.0-50.0) 07/16/18 06:42 Monocytes % 10.9 % (2.0-10.0) H 07/16/18 06:42 Eosinophils % 2.0 % (0.0-5.0) 07/16/18 06:42 Basophils % 0.7 % (0.0-2.0) 07/16/18 06:42 Sodium 137 mEq/L (136-145) 07/16/18 06:42 Potassium 4.5 mEq/L (3.5-5.1) 07/16/18 06:42 Chloride 104 mEq/L (98-107) 07/16/18 06:42 Carbon Dioxide 25.0 mEq/L (21.0-31.0) 07/16/18 06:42 Anion Gap 12.5 (7.0-16.0) 07/16/18 06:42 BUN 19 mg/dL (7-25) 07/16/18 06:42 Creatinine 1.0 mg/dL (0.6-1.2) 07/16/18 06:42 Est GFR ( Amer) TNP 07/16/18 06:42 Est GFR (Non-Af Amer) TNP 07/16/18 06:42 BUN/Creatinine Ratio 19.0 07/16/18 06:42 Glucose 86 mg/dL (70-105) 07/16/18 06:42 Calcium 9.3 mg/dL (8.6-10.3) 07/16/18 06:42 Total Bilirubin 0.4 mg/dL (0.3-1.0) 07/11/18 21:50 AST 22 U/L (13-39) 07/11/18 21:50 ALT 12 U/L (7-52) 07/11/18 21:50 Alkaline Phosphatase 62 U/L (34-104) 07/11/18 21:50 Troponin I 0.03 ng/mL (0.01-0.05) 07/11/18 21:50 B-Natriuretic Peptide 77.1 pg/mL (5.0-100.0) 07/11/18 21:50 Total Protein 6.9 gm/dL (6.0-8.3) 07/11/18 21:50 Albumin 3.5 gm/dL (3.7-5.3) L 07/11/18 21:50 Globulin 3.4 gm/dL 07/11/18 21:50 Albumin/Globulin Ratio 1.0 (1.0-1.8) 07/11/18 21:50 Triglycerides 129 mg/dL (<150) 07/12/18 07:10 Cholesterol 188 mg/dL (<200) 07/12/18 07:10 LDL Cholesterol Direct 125 mg/dL (75-193) 07/12/18 07:10 HDL Cholesterol 45 mg/dL (23-92) 07/12/18 07:10 TSH 2.14 uIU/ml (0.34-5.60) 07/11/18 21:50 RPR NONREACTIVE (NONREACTIVE) 07/11/18 21:50 - Physical Exam Vitals and I&O: Vital Signs Temp 98.2 F 07/19/18 06:19 Pulse 71 07/19/18 09:10 Resp 16 07/19/18 09:10 BP 107/51 07/19/18 06:19 Pulse Ox 96 07/19/18 09:10 Intake & Output 07/18/18 07/19/18 07/19/18 18:59 06:59 18:59 Intake Total 800 180 Balance 800 180 Intake: Oral 800 180 Other: # Voids 3 2 # Bowel Movements 0 0 Active Medications: Current Medications Acetaminophen (Tylenol) 650 mg PO Q4HR PRN PRN Reason: Mild Pain / Temp above 100 Stop: 09/10/18 00:57 Acetaminophen (Tylenol) 650 mg PO Q6H PRN PRN Reason: Pain (Mild) Stop: 09/10/18 08:22 Al Hydrox/Mg Hydrox/Simethicone (Maalox) 30 ml PO Q4HR PRN PRN Reason: GI DISTRESS Stop: 09/10/18 00:57 Albuterol Sulfate (Albuterol 2.5mg/3ml Neb Ud) 2.5 mg HHN QIDRT [facility] Stop: 09/10/18 10:59 Last Admin: 07/19/18 11:02 Dose: Not Given Donepezil HCl (Aricept) 10 mg PO HS [facility] Stop: 09/17/18 20:59 Dorzolamide/Timolol (Cosopt Ophth Soln) 1 drop EACH EYE [facility] Stop: 09/10/18 20:59 Last Admin: 07/18/18 21:41 Dose: Not Given Lorazepam (Ativan) 0.5 mg PO Q4HR PRN; Protocol PRN Reason: Anxiety Stop: 08/11/18 00:57 Last Admin: 07/17/18 01:41 Dose: 0.5 mg Magnesium Hydroxide (Milk Of Magnesia) 30 ml PO HS PRN PRN Reason: Constipation Magnesium Hydroxide (Milk Of Magnesia) 30 ml PO HS PRN PRN Reason: Constipation Stop: 09/10/18 08:22 Megestrol Acetate (Megace) 400 mg PO DAILY [facility]; Protocol Stop: 09/14/18 08:59 Last Admin: 07/19/18 09:50 Dose: Not Given Memantine (Namenda) 5 mg PO HS [facility] Stop: 09/11/18 20:59 Last Admin: 07/18/18 21:40 Dose: 5 mg Multivitamins/Vitamin C (Theragran) 1 tab PO DAILY [facility] Stop: 09/10/18 08:59 Last Admin: 07/19/18 10:00 Dose: Not Given Quetiapine Fumarate (Seroquel) 37.5 mg PO BID [facility]; Protocol Stop: 09/17/18 08:59 Last Admin: 07/19/18 10:00 Dose: Not Given Zolpidem Tartrate (Ambien) 5 mg PO HS PRN PRN Reason: Insomnia Stop: 09/10/18 00:57 Last Admin: 07/17/18 21:20 Dose: 5 mg HEENT: NC/AT, PERRLA Neck: Supple Lungs: CTAB Cardiovascular: RRR, Normal S1, Normal S2, without murmur Abdomen: soft, non-tender, non-distended, positive bowel sound Extremities: excoriation Neurological: no change Internal Medicine Assmt/Plan - Assessment Assessment: Assessment: Hypokalemia, hypertension, asthma, chronic obstructive pulmonary disease, hypothyroidism, dysphagia, aggressive behavior, history of frequent falls. - Plan Plan: - Plan Plan: continue with megace calorie count fall precautions prn o2 cont on synthroid continue current plan of care Nutritional Asmnt/Malnutr-PDOC - Dietary Evaluation Malnutrition Findings (Please click <Entered> for more info): Nutritional Asmnt/Malnutrition Start: 07/15/18 11: 06 Text: Status: Complete Freq: Protocol: Document 07/15/18 11:06 RITCHIE (Rec: 07/15/18 11:30 MMHERLINDA RICHARDSON- [email or web address]) Nutritional Asmnt/Malnutrition Patient General Information Nutritional Screening Moderate Risk Diagnosis Psychosis NOS Pertinent Medical Hx/Surgical Hx HTN, asthma, COPD, hypothyroidism, dysphagia, glaucoma, syncope episodes, frequent Subjective Information [facility]. Per nursing notes, "pt remains isolated, withdrawn, depressed, suspicious, guarded, poor appetite". Current Diet Order/ Nutrition Support Regular Patient / S.O Not Indicated Pertinent Medications maalox, MOM, Theragran Pertinent Labs (07/11) K 3.4, albumin 3.5 Nutritional Hx/Data Height 1.68 m Height (Calculated Centimeters) 167.6 Current Weight (lbs) 61.235 kg Weight (Calculated Kilograms) 61.2 Weight (Calculated Grams) 17970.0 [place] Body Weight 130 % [place] Body Weight 103 Body Mass Index (BMI) 21.7 Weight Status Approriate GI Symptoms GI Symptoms None Last BM 07/14x 2 Difficult in: None Food Allergies No Cultural/Ethnic/Buddhist Belief None indicated Usual diet at home unknown Skin Integrity/Comment: William 16, intact Current %PO Poor (25-49%) Estimated Nutritional Goals BEE in Kcals: Using Current wt Calories/Kcals/Kg 61.3 kg 25-30 kcal/kg Kcals Calculated ~4108-2345 kcal/day Protein: Using Current wt Protein g/k gm/kg Protein Calculated 60 gm/day Fluid: ml ~6084-7789 ml/day Nutritional Problem 2. Problem Problem Altered nutrition related lab values related to Etiology electrolyte imbalance aeb Signs/Symptoms: K 3.4 1. Problem Problem Inadequate oral intake related to Etiology possible poor appetite aeb Signs/Symptoms: oral intake <50% of meals Intervention/Recommendation Comments 1. Continue regular diet as tolerated by patient. 2. Encourage oral intake and assist with meals as needed. 3. Provide Ensure Enlive BID to supplement oral caloric intake (also a source of potassium). Expected Outcomes/Goals Expected Outcomes/Goals Oral intake >75% of meals, weight stable, nutrition related labs WNL F/U in 3-5 days as MR (07/18- )
--- NOTE | 2018-07-19 22:18 | Progress Notes ---
DATE: SUBJECTIVE: Chart reviewed and the patient interviewed. Also discussed the patient's condition with the staff and reviewed records and labs. The patient is still forgetful and she is still suspicious and is still paranoid. The patient also is still increasingly agitated and she has episodes of yelling and screaming. She also is angry mood and she is refusing to answer question and she is paranoid. Otherwise, the patient is compliant with taking her medications with no side effect of medications. ASSESSMENT: The patient is still agitated and psychotic. TREATMENT PLAN: We will continue to monitor behavior closely. Also, we will increase Seroquel to 37.5 mg twice a day and Aricept to 10 mg every day and will continue to follow up closely. [facility]# [id number]
[2018-07-20] MEDS: Albuterol Nebulizer 2.5mg/3mL HHN SCH ×4 (07:33→20:47)
[2018-07-20] MEDS: Multivitamin Tab PO SCH (09:17)
--- NOTE | 2018-07-20 13:56 | Internal Medicine Prog Note ---
Internal Medicine Subjective - Subjective Patient seen and examined:: with staff, chart reviewed Patient is:: awake, interactive, denies any new complaints Per staff patient has:: no adverse event, no episodes of fall, tolerating meds Internal Medicine Objective - Results Result Diagrams: 07/16/18 06:42 07/16/18 06:42 Recent Labs: Laboratory Last Values WBC 9.2 Th/cmm (4.8-10.8) 07/16/18 06:42 RBC 5.78 Mil/cmm (3.80-5.20) H 07/16/18 06:42 Hgb 17.2 gm/dL (12-16) 07/16/18 06:42 Hct 49.8 % (41.0-60) 07/16/18 06:42 MCV 86.2 fl (81-100) 07/16/18 06:42 MCH 29.7 pg (27.0-31.0) 07/16/18 06:42 MCHC Differential 34.4 pg (28.0-36.0) 07/16/18 06:42 RDW 14.0 % (11.5-20.0) 07/16/18 06:42 Plt Count 265 Th/cmm (150-400) 07/16/18 06:42 MPV 8.5 fl 07/16/18 06:42 Neutrophils % 55.4 % (40.0-80.0) 07/16/18 06:42 Lymphocytes % 31.0 % (20.0-50.0) 07/16/18 06:42 Monocytes % 10.9 % (2.0-10.0) H 07/16/18 06:42 Eosinophils % 2.0 % (0.0-5.0) 07/16/18 06:42 Basophils % 0.7 % (0.0-2.0) 07/16/18 06:42 Sodium 137 mEq/L (136-145) 07/16/18 06:42 Potassium 4.5 mEq/L (3.5-5.1) 07/16/18 06:42 Chloride 104 mEq/L (98-107) 07/16/18 06:42 Carbon Dioxide 25.0 mEq/L (21.0-31.0) 07/16/18 06:42 Anion Gap 12.5 (7.0-16.0) 07/16/18 06:42 BUN 19 mg/dL (7-25) 07/16/18 06:42 Creatinine 1.0 mg/dL (0.6-1.2) 07/16/18 06:42 Est GFR ( Amer) TNP 07/16/18 06:42 Est GFR (Non-Af Amer) TNP 07/16/18 06:42 BUN/Creatinine Ratio 19.0 07/16/18 06:42 Glucose 86 mg/dL (70-105) 07/16/18 06:42 Calcium 9.3 mg/dL (8.6-10.3) 07/16/18 06:42 Total Bilirubin 0.4 mg/dL (0.3-1.0) 07/11/18 21:50 AST 22 U/L (13-39) 07/11/18 21:50 ALT 12 U/L (7-52) 07/11/18 21:50 Alkaline Phosphatase 62 U/L (34-104) 07/11/18 21:50 Troponin I 0.03 ng/mL (0.01-0.05) 07/11/18 21:50 B-Natriuretic Peptide 77.1 pg/mL (5.0-100.0) 07/11/18 21:50 Total Protein 6.9 gm/dL (6.0-8.3) 07/11/18 21:50 Albumin 3.5 gm/dL (3.7-5.3) L 07/11/18 21:50 Globulin 3.4 gm/dL 07/11/18 21:50 Albumin/Globulin Ratio 1.0 (1.0-1.8) 07/11/18 21:50 Triglycerides 129 mg/dL (<150) 07/12/18 07:10 Cholesterol 188 mg/dL (<200) 07/12/18 07:10 LDL Cholesterol Direct 125 mg/dL (75-193) 07/12/18 07:10 HDL Cholesterol 45 mg/dL (23-92) 07/12/18 07:10 TSH 2.14 uIU/ml (0.34-5.60) 07/11/18 21:50 RPR NONREACTIVE (NONREACTIVE) 07/11/18 21:50 - Physical Exam Vitals and I&O: Vital Signs Temp 98.3 F 07/19/18 20:00 Pulse 75 07/20/18 11:03 Resp 16 07/20/18 11:03 BP 104/62 07/19/18 20:00 Pulse Ox 96 07/20/18 11:03 Intake & Output 07/19/18 07/20/18 07/20/18 18:59 06:59 18:59 Other: # Voids 2 # Bowel Movements 0 Active Medications: Current Medications Acetaminophen (Tylenol) 650 mg PO Q4HR PRN PRN Reason: Mild Pain / Temp above 100 Stop: 09/10/18 00:57 Last Admin: 07/20/18 10:22 Dose: 650 mg Acetaminophen (Tylenol) 650 mg PO Q6H PRN PRN Reason: Pain (Mild) Stop: 09/10/18 08:22 Al Hydrox/Mg Hydrox/Simethicone (Maalox) 30 ml PO Q4HR PRN PRN Reason: GI DISTRESS Stop: 09/10/18 00:57 Albuterol Sulfate (Albuterol 2.5mg/3ml Neb Ud) 2.5 mg HHN QIDRT [facility] Stop: 09/10/18 10:59 Last Admin: 07/20/18 11:01 Dose: Not Given Donepezil HCl (Aricept) 10 mg PO HS [facility] Stop: 09/17/18 20:59 Last Admin: 07/19/18 20:42 Dose: 10 mg Dorzolamide/Timolol (Cosopt Ophth Soln) 1 drop EACH EYE HS [facility] Stop: 09/10/18 20:59 Last Admin: 07/19/18 20:43 Dose: Not Given Lorazepam (Ativan) 0.5 mg PO Q4HR PRN; Protocol PRN Reason: Anxiety Stop: 08/11/18 00:57 Last Admin: 07/17/18 01:41 Dose: 0.5 mg Magnesium Hydroxide (Milk Of Magnesia) 30 ml PO HS PRN PRN Reason: Constipation Magnesium Hydroxide (Milk Of Magnesia) 30 ml PO HS PRN PRN Reason: Constipation Stop: 09/10/18 08:22 Megestrol Acetate (Megace) 400 mg PO DAILY [facility]; Protocol Stop: 09/14/18 08:59 Last Admin: 07/20/18 09:17 Dose: Not Given Memantine (Namenda) 5 mg PO HS [facility] Stop: 09/11/18 20:59 Last Admin: 07/19/18 20:42 Dose: 5 mg Multivitamins/Vitamin C (Theragran) 1 tab PO DAILY [facility] Stop: 09/10/18 08:59 Last Admin: 07/20/18 09:17 Dose: 1 tab Quetiapine Fumarate (Seroquel) 37.5 mg PO BID [facility]; Protocol Stop: 09/17/18 08:59 Last Admin: 07/20/18 09:17 Dose: 37.5 mg Zolpidem Tartrate (Ambien) 5 mg PO HS PRN PRN Reason: Insomnia Stop: 09/10/18 00:57 Last Admin: 07/17/18 21:20 Dose: 5 mg HEENT: NC/AT, PERRLA Neck: Supple Lungs: CTAB Cardiovascular: RRR, Normal S1, Normal S2, without murmur Abdomen: soft, non-tender, non-distended, positive bowel sound Extremities: excoriation Neurological: no change Internal Medicine Assmt/Plan - Assessment Assessment: Assessment: Hypokalemia, hypertension, asthma, chronic obstructive pulmonary disease, hypothyroidism, dysphagia, aggressive behavior, history of frequent falls. - Plan Plan: - Plan Plan: continue with megace calorie count fall precautions prn o2 cont on synthroid continue current plan of care Nutritional Asmnt/Malnutr-PDOC - Dietary Evaluation Malnutrition Findings (Please click <Entered> for more info): Nutritional Asmnt/Malnutrition Start: 07/15/18 11: 06 Text: Status: Complete Freq: Protocol: Document 07/15/18 11:06 RITCHIE (Rec: 07/15/18 11:30 RITCHIE RICHARDSON- [email or web address]) Nutritional Asmnt/Malnutrition Patient General Information Nutritional Screening Moderate Risk Diagnosis Psychosis NOS Pertinent Medical Hx/Surgical Hx HTN, asthma, COPD, hypothyroidism, dysphagia, glaucoma, syncope episodes, frequent Subjective Information Patient was admitted from long term. Per nursing notes, "pt remains isolated, withdrawn, depressed, suspicious, guarded, poor appetite". Current Diet Order/ Nutrition Support Regular Patient / S.O Not Indicated Pertinent Medications maalox, MOM, Theragran Pertinent Labs (07/11) K 3.4, albumin 3.5 Nutritional Hx/Data Height 1.68 m Height (Calculated Centimeters) 167.6 Current Weight (lbs) 61.235 kg Weight (Calculated Kilograms) 61.2 Weight (Calculated Grams) 48084.0 [place] Body Weight 130 % [place] Body Weight 103 Body Mass Index (BMI) 21.7 Weight Status Approriate GI Symptoms GI Symptoms None Last BM 07/14x 2 Difficult in: None Food Allergies No Cultural/Ethnic/Gnosticism Belief None indicated Usual diet at home unknown Skin Integrity/Comment: William 16, intact Current %PO Poor (25-49%) Estimated Nutritional Goals BEE in Kcals: Using Current wt Calories/Kcals/Kg 61.3 kg 25-30 kcal/kg Kcals Calculated ~9421-9059 kcal/day Protein: Using Current wt Protein g/k gm/kg Protein Calculated 60 gm/day Fluid: ml ~8184-6568 ml/day Nutritional Problem 2. Problem Problem Altered nutrition related lab values related to Etiology electrolyte imbalance aeb Signs/Symptoms: K 3.4 1. Problem Problem Inadequate oral intake related to Etiology possible poor appetite aeb Signs/Symptoms: oral intake <50% of meals Intervention/Recommendation Comments 1. Continue regular diet as tolerated by patient. 2. Encourage oral intake and assist with meals as needed. 3. Provide Ensure Enlive BID to supplement oral caloric intake (also a source of potassium). Expected Outcomes/Goals Expected Outcomes/Goals Oral intake >75% of meals, weight stable, nutrition related labs WNL F/U in 3-5 days as MR (07/18- )
--- NOTE | 2018-07-20 20:17 | Progress Notes ---
DATE: 07/20/2018 PSYCHIATRIC PROGRESS NOTE SUBJECTIVE: Chart reviewed and the patient interviewed. Also discussed the patient's condition with the staff and reviewed records and labs. The patient is still in a depressed mood and she is still guarded. The patient also is still withdrawn. The patient also is cooperative with his care, but at the same time, she is still having episodes of irritability and anger. Otherwise, the patient is compliant with taking her medications and she slept most of the night. She also still needs redirections at times. ASSESSMENT: The patient is still agitated and in irritable mood. TREATMENT PLAN: Continue to monitor behavior and her condition closely. Also, continue adjusting psychotropic medications and working on behavioral modification. [facility]# [id number]
[2018-07-21] MEDS: Albuterol Nebulizer 2.5mg/3mL HHN SCH ×5 (07:16→19:21)
[2018-07-21] MEDS: Multivitamin Tab PO SCH (10:20)
--- NOTE | 2018-07-21 14:55 | Internal Medicine Prog Note ---
Internal Medicine Subjective - Subjective Patient seen and examined:: with staff, chart reviewed Patient is:: awake, interactive, denies any new complaints Per staff patient has:: no adverse event, no episodes of fall, tolerating meds Internal Medicine Objective - Results Result Diagrams: 07/16/18 06:42 07/16/18 06:42 Recent Labs: Laboratory Last Values WBC 9.2 Th/cmm (4.8-10.8) 07/16/18 06:42 RBC 5.78 Mil/cmm (3.80-5.20) H 07/16/18 06:42 Hgb 17.2 gm/dL (12-16) 07/16/18 06:42 Hct 49.8 % (41.0-60) 07/16/18 06:42 MCV 86.2 fl (81-100) 07/16/18 06:42 MCH 29.7 pg (27.0-31.0) 07/16/18 06:42 MCHC Differential 34.4 pg (28.0-36.0) 07/16/18 06:42 RDW 14.0 % (11.5-20.0) 07/16/18 06:42 Plt Count 265 Th/cmm (150-400) 07/16/18 06:42 MPV 8.5 fl 07/16/18 06:42 Neutrophils % 55.4 % (40.0-80.0) 07/16/18 06:42 Lymphocytes % 31.0 % (20.0-50.0) 07/16/18 06:42 Monocytes % 10.9 % (2.0-10.0) H 07/16/18 06:42 Eosinophils % 2.0 % (0.0-5.0) 07/16/18 06:42 Basophils % 0.7 % (0.0-2.0) 07/16/18 06:42 Sodium 137 mEq/L (136-145) 07/16/18 06:42 Potassium 4.5 mEq/L (3.5-5.1) 07/16/18 06:42 Chloride 104 mEq/L (98-107) 07/16/18 06:42 Carbon Dioxide 25.0 mEq/L (21.0-31.0) 07/16/18 06:42 Anion Gap 12.5 (7.0-16.0) 07/16/18 06:42 BUN 19 mg/dL (7-25) 07/16/18 06:42 Creatinine 1.0 mg/dL (0.6-1.2) 07/16/18 06:42 Est GFR ( Amer) TNP 07/16/18 06:42 Est GFR (Non-Af Amer) TNP 07/16/18 06:42 BUN/Creatinine Ratio 19.0 07/16/18 06:42 Glucose 86 mg/dL (70-105) 07/16/18 06:42 Calcium 9.3 mg/dL (8.6-10.3) 07/16/18 06:42 Total Bilirubin 0.4 mg/dL (0.3-1.0) 07/11/18 21:50 AST 22 U/L (13-39) 07/11/18 21:50 ALT 12 U/L (7-52) 07/11/18 21:50 Alkaline Phosphatase 62 U/L (34-104) 07/11/18 21:50 Troponin I 0.03 ng/mL (0.01-0.05) 07/11/18 21:50 B-Natriuretic Peptide 77.1 pg/mL (5.0-100.0) 07/11/18 21:50 Total Protein 6.9 gm/dL (6.0-8.3) 07/11/18 21:50 Albumin 3.5 gm/dL (3.7-5.3) L 07/11/18 21:50 Globulin 3.4 gm/dL 07/11/18 21:50 Albumin/Globulin Ratio 1.0 (1.0-1.8) 07/11/18 21:50 Triglycerides 129 mg/dL (<150) 07/12/18 07:10 Cholesterol 188 mg/dL (<200) 07/12/18 07:10 LDL Cholesterol Direct 125 mg/dL (75-193) 07/12/18 07:10 HDL Cholesterol 45 mg/dL (23-92) 07/12/18 07:10 TSH 2.14 uIU/ml (0.34-5.60) 07/11/18 21:50 RPR NONREACTIVE (NONREACTIVE) 07/11/18 21:50 - Physical Exam Vitals and I&O: Vital Signs Temp 97.8 F 07/20/18 14:15 Pulse 70 07/21/18 10:52 Resp 16 07/21/18 10:52 BP 113/57 07/20/18 14:15 Pulse Ox 96 07/21/18 10:52 Intake & Output 07/20/18 07/21/18 07/21/18 18:59 06:59 18:59 Intake Total 120 Balance 120 Intake: Oral 120 Other: # Voids 3 3 # Bowel Movements 0 Active Medications: Current Medications Acetaminophen (Tylenol) 650 mg PO Q4HR PRN PRN Reason: Mild Pain / Temp above 100 Stop: 09/10/18 00:57 Last Admin: 07/20/18 10:22 Dose: 650 mg Acetaminophen (Tylenol) 650 mg PO Q6H PRN PRN Reason: Pain (Mild) Stop: 09/10/18 08:22 Al Hydrox/Mg Hydrox/Simethicone (Maalox) 30 ml PO Q4HR PRN PRN Reason: GI DISTRESS Stop: 09/10/18 00:57 Albuterol Sulfate (Albuterol 2.5mg/3ml Neb Ud) 2.5 mg HHN QIDRT [facility] Stop: 09/10/18 10:59 Last Admin: 07/21/18 10:51 Dose: Not Given Donepezil HCl (Aricept) 10 mg PO HS [facility] Stop: 09/17/18 20:59 Last Admin: 07/20/18 20:09 Dose: 10 mg Dorzolamide/Timolol (Cosopt Ophth Soln) 1 drop EACH EYE [facility] Stop: 09/10/18 20:59 Last Admin: 07/20/18 20:10 Dose: Not Given Lorazepam (Ativan) 0.5 mg PO Q4HR PRN; Protocol PRN Reason: Anxiety Stop: 08/11/18 00:57 Last Admin: 07/17/18 01:41 Dose: 0.5 mg Magnesium Hydroxide (Milk Of Magnesia) 30 ml PO HS PRN PRN Reason: Constipation Magnesium Hydroxide (Milk Of Magnesia) 30 ml PO HS PRN PRN Reason: Constipation Stop: 09/10/18 08:22 Megestrol Acetate (Megace) 400 mg PO DAILY [facility]; Protocol Stop: 09/14/18 08:59 Last Admin: 07/21/18 10:19 Dose: 400 mg Memantine (Namenda) 5 mg PO HS [facility] Stop: 09/11/18 20:59 Last Admin: 07/20/18 20:09 Dose: 5 mg Multivitamins/Vitamin C (Theragran) 1 tab PO DAILY [facility] Stop: 09/10/18 08:59 Last Admin: 07/21/18 10:20 Dose: 1 tab Quetiapine Fumarate (Seroquel) 37.5 mg PO BID [facility]; Protocol Stop: 09/17/18 08:59 Last Admin: 07/21/18 10:20 Dose: 37.5 mg Zolpidem Tartrate (Ambien) 5 mg PO HS PRN PRN Reason: Insomnia Stop: 09/10/18 00:57 Last Admin: 07/17/18 21:20 Dose: 5 mg General: demented HEENT: NC/AT, PERRLA Neck: Supple Lungs: CTAB Cardiovascular: RRR, Normal S1, Normal S2, without murmur Abdomen: soft, non-tender, non-distended, positive bowel sound Extremities: excoriation Neurological: no change Internal Medicine Assmt/Plan - Assessment Assessment: Assessment: Hypokalemia, hypertension, asthma, chronic obstructive pulmonary disease, hypothyroidism, dysphagia, aggressive behavior, history of frequent falls. - Plan Plan: - Plan Plan: continue with megace calorie count fall precautions prn o2 cont on synthroid continue current plan of care Nutritional Asmnt/Malnutr-PDOC - Dietary Evaluation Malnutrition Findings (Please click <Entered> for more info): Nutritional Asmnt/Malnutrition Start: 07/15/18 11: 06 Text: Status: Complete Freq: Protocol: Document 07/15/18 11:06 RITCHIE (Rec: 07/15/18 11:30 RITCHIE RICHARDSON- [email or web address]) Nutritional Asmnt/Malnutrition Patient General Information Nutritional Screening Moderate Risk Diagnosis Psychosis NOS Pertinent Medical Hx/Surgical Hx HTN, asthma, COPD, hypothyroidism, dysphagia, glaucoma, syncope episodes, frequent Subjective Information Patient was admitted from group home. Per nursing notes, "pt remains isolated, withdrawn, depressed, suspicious, guarded, poor appetite". Current Diet Order/ Nutrition Support Regular Patient / S.O Not Indicated Pertinent Medications maalox, MOM, Theragran Pertinent Labs (07/11) K 3.4, albumin 3.5 Nutritional Hx/Data Height 1.68 m Height (Calculated Centimeters) 167.6 Current Weight (lbs) 61.235 kg Weight (Calculated Kilograms) 61.2 Weight (Calculated Grams) 43187.0 [place] Body Weight 130 % [place] Body Weight 103 Body Mass Index (BMI) 21.7 Weight Status Approriate GI Symptoms GI Symptoms None Last BM 16x 2 Difficult in: None Food Allergies No Cultural/Ethnic/Restorationism Belief None indicated Usual diet at home unknown Skin Integrity/Comment: William 16, intact Current %PO Poor (25-49%) Estimated Nutritional Goals BEE in Kcals: Using Current wt Calories/Kcals/Kg 61.3 kg 25-30 kcal/kg Kcals Calculated ~1157-4304 kcal/day Protein: Using Current wt Protein g/k gm/kg Protein Calculated 60 gm/day Fluid: ml ~0014-6061 ml/day Nutritional Problem 2. Problem Problem Altered nutrition related lab values related to Etiology electrolyte imbalance aeb Signs/Symptoms: K 3.4 1. Problem Problem Inadequate oral intake related to Etiology possible poor appetite aeb Signs/Symptoms: oral intake <50% of meals Intervention/Recommendation Comments 1. Continue regular diet as tolerated by patient. 2. Encourage oral intake and assist with meals as needed. 3. Provide Ensure Enlive BID to supplement oral caloric intake (also a source of potassium). Expected Outcomes/Goals Expected Outcomes/Goals Oral intake >75% of meals, weight stable, nutrition related labs WNL F/U in 3-5 days as MR (07/18- )
--- NOTE | 2018-07-21 20:17 | Discharge Summary ---
DATE OF DISCHARGE: 07/21/2018 DATE OF DISCHARGE: 07/21/2018. AGE: 88. SEX: Female. PHYSICIAN: Dr. Tate. FINAL DIAGNOSIS: PRIMARY DIAGNOSIS: Unspecified psychosis. 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 REASON FOR HOSPITALIZATION: The patient was admitted to the hospital because of increased irritability and increased agitation and the patient was delusional. HOSPITAL COURSE: The patient continued to be delusional and continued to be actively hallucinating and aggressive and responding to stimuli. The patient continued to take Aricept and the dose increased to 10 mg every bedtime. Also, the patient continued to take Namenda in a dose of 5 mg every day. I added Seroquel and the dose adjusted to 37.5 mg twice a day. Gradually, the patient's affect was brighter. The patient was less irritable and less agitated. She was still at times having episodes of yelling and screaming, but less than before. The patient was not as agitated and the patient was discharged from the hospital. Physical examination of the patient basically showed no major medical problems and patient had no major medical issues while in the hospital. AFTER DISCHARGE PLANS: The patient discharged from the hospital and returned to [facility] with plans for outpatient treatment there. EXPECTED OUTCOME AFTER DISCHARGE: Fair if the patient continued to take her medications and follow up with discharge plans. [facility]# [id number]
[2018-07-22] MEDS: Albuterol Nebulizer 2.5mg/3mL HHN SCH (07:23)
[2018-07-22] MEDS: Multivitamin Tab PO SCH (09:13)
--- NOTE | 2018-07-22 11:29 | Internal Medicine Prog Note ---
Internal Medicine Subjective - Subjective Patient seen and examined:: with staff, chart reviewed Patient is:: awake, interactive, denies any new complaints Per staff patient has:: no adverse event, no episodes of fall, tolerating meds Internal Medicine Objective - Results Result Diagrams: 07/16/18 06:42 07/16/18 06:42 Recent Labs: Laboratory Last Values WBC 9.2 Th/cmm (4.8-10.8) 07/16/18 06:42 RBC 5.78 Mil/cmm (3.80-5.20) H 07/16/18 06:42 Hgb 17.2 gm/dL (12-16) 07/16/18 06:42 Hct 49.8 % (41.0-60) 07/16/18 06:42 MCV 86.2 fl (81-100) 07/16/18 06:42 MCH 29.7 pg (27.0-31.0) 07/16/18 06:42 MCHC Differential 34.4 pg (28.0-36.0) 07/16/18 06:42 RDW 14.0 % (11.5-20.0) 07/16/18 06:42 Plt Count 265 Th/cmm (150-400) 07/16/18 06:42 MPV 8.5 fl 07/16/18 06:42 Neutrophils % 55.4 % (40.0-80.0) 07/16/18 06:42 Lymphocytes % 31.0 % (20.0-50.0) 07/16/18 06:42 Monocytes % 10.9 % (2.0-10.0) H 07/16/18 06:42 Eosinophils % 2.0 % (0.0-5.0) 07/16/18 06:42 Basophils % 0.7 % (0.0-2.0) 07/16/18 06:42 Sodium 137 mEq/L (136-145) 07/16/18 06:42 Potassium 4.5 mEq/L (3.5-5.1) 07/16/18 06:42 Chloride 104 mEq/L (98-107) 07/16/18 06:42 Carbon Dioxide 25.0 mEq/L (21.0-31.0) 07/16/18 06:42 Anion Gap 12.5 (7.0-16.0) 07/16/18 06:42 BUN 19 mg/dL (7-25) 07/16/18 06:42 Creatinine 1.0 mg/dL (0.6-1.2) 07/16/18 06:42 Est GFR ( Amer) TNP 07/16/18 06:42 Est GFR (Non-Af Amer) TNP 07/16/18 06:42 BUN/Creatinine Ratio 19.0 07/16/18 06:42 Glucose 86 mg/dL (70-105) 07/16/18 06:42 Calcium 9.3 mg/dL (8.6-10.3) 07/16/18 06:42 Total Bilirubin 0.4 mg/dL (0.3-1.0) 07/11/18 21:50 AST 22 U/L (13-39) 07/11/18 21:50 ALT 12 U/L (7-52) 07/11/18 21:50 Alkaline Phosphatase 62 U/L (34-104) 07/11/18 21:50 Troponin I 0.03 ng/mL (0.01-0.05) 07/11/18 21:50 B-Natriuretic Peptide 77.1 pg/mL (5.0-100.0) 07/11/18 21:50 Total Protein 6.9 gm/dL (6.0-8.3) 07/11/18 21:50 Albumin 3.5 gm/dL (3.7-5.3) L 07/11/18 21:50 Globulin 3.4 gm/dL 07/11/18 21:50 Albumin/Globulin Ratio 1.0 (1.0-1.8) 07/11/18 21:50 Triglycerides 129 mg/dL (<150) 07/12/18 07:10 Cholesterol 188 mg/dL (<200) 07/12/18 07:10 LDL Cholesterol Direct 125 mg/dL (75-193) 07/12/18 07:10 HDL Cholesterol 45 mg/dL (23-92) 07/12/18 07:10 TSH 2.14 uIU/ml (0.34-5.60) 07/11/18 21:50 RPR NONREACTIVE (NONREACTIVE) 07/11/18 21:50 - Physical Exam Vitals and I&O: Vital Signs Temp 97.9 F 07/22/18 06:30 Pulse 65 07/22/18 07:25 Resp 16 07/22/18 07:25 BP 114/57 07/22/18 06:30 Pulse Ox 96 07/22/18 07:25 Intake & Output 07/21/18 07/22/18 07/22/18 18:59 06:59 18:59 Intake Total 460 60 Balance 460 60 Intake: Oral 460 60 Other: # Voids 2 3 # Bowel Movements 0 0 Active Medications: Current Medications Acetaminophen (Tylenol) 650 mg PO Q4HR PRN PRN Reason: Mild Pain / Temp above 100 Stop: 09/10/18 00:57 Last Admin: 07/20/18 10:22 Dose: 650 mg Acetaminophen (Tylenol) 650 mg PO Q6H PRN PRN Reason: Pain (Mild) Stop: 09/10/18 08:22 Al Hydrox/Mg Hydrox/Simethicone (Maalox) 30 ml PO Q4HR PRN PRN Reason: GI DISTRESS Stop: 09/10/18 00:57 Albuterol Sulfate (Albuterol 2.5mg/3ml Neb Ud) 2.5 mg N QIDRT [facility] Stop: 09/10/18 10:59 Last Admin: 07/22/18 07:23 Dose: Not Given Donepezil HCl (Aricept) 10 mg PO [facility] Stop: 09/17/18 20:59 Last Admin: 07/21/18 22:00 Dose: Not Given Dorzolamide/Timolol (Cosopt Ophth Soln) 1 drop EACH EYE [facility] Stop: 09/10/18 20:59 Last Admin: 07/21/18 22:00 Dose: Not Given Lorazepam (Ativan) 0.5 mg PO Q4HR PRN; Protocol PRN Reason: Anxiety Stop: 08/11/18 00:57 Last Admin: 07/17/18 01:41 Dose: 0.5 mg Magnesium Hydroxide (Milk Of Magnesia) 30 ml PO HS PRN PRN Reason: Constipation Magnesium Hydroxide (Milk Of Magnesia) 30 ml PO HS PRN PRN Reason: Constipation Stop: 09/10/18 08:22 Megestrol Acetate (Megace) 400 mg PO DAILY [facility]; Protocol Stop: 09/14/18 08:59 Last Admin: 07/22/18 09:13 Dose: Not Given Memantine (Namenda) 5 mg PO HS [facility] Stop: 09/11/18 20:59 Last Admin: 07/21/18 22:00 Dose: Not Given Multivitamins/Vitamin C (Theragran) 1 tab PO DAILY [facility] Stop: 09/10/18 08:59 Last Admin: 07/22/18 09:13 Dose: Not Given Quetiapine Fumarate (Seroquel) 37.5 mg PO BID [facility]; Protocol Stop: 09/17/18 08:59 Last Admin: 07/22/18 09:13 Dose: Not Given Zolpidem Tartrate (Ambien) 5 mg PO HS PRN PRN Reason: Insomnia Stop: 09/10/18 00:57 Last Admin: 07/17/18 21:20 Dose: 5 mg General: demented HEENT: NC/AT, PERRLA Neck: Supple Lungs: CTAB Cardiovascular: RRR, Normal S1, Normal S2, without murmur Abdomen: soft, non-tender, non-distended, positive bowel sound Extremities: excoriation Neurological: no change Internal Medicine Assmt/Plan - Assessment Assessment: Assessment: Hypokalemia, hypertension, asthma, chronic obstructive pulmonary disease, hypothyroidism, dysphagia, aggressive behavior, history of frequent falls. - Plan Plan: - Plan Plan: continue with megace calorie count fall precautions prn o2 cont on synthroid continue current plan of care Nutritional Asmnt/Malnutr-PDOC - Dietary Evaluation Malnutrition Findings (Please click <Entered> for more info): Nutritional Asmnt/Malnutrition Start: 07/15/18 11: 06 Text: Status: Complete Freq: Protocol: Document 07/15/18 11:06 RITCHIE (Rec: 07/15/18 11:30 RITCHIE RICHARDSON- [email or web address]) Nutritional Asmnt/Malnutrition Patient General Information Nutritional Screening Moderate Risk Diagnosis Psychosis NOS Pertinent Medical Hx/Surgical Hx HTN, asthma, COPD, hypothyroidism, dysphagia, glaucoma, syncope episodes, frequent Subjective Information Patient was [facility]. Per nursing notes, "pt remains isolated, withdrawn, depressed, suspicious, guarded, poor appetite". Current Diet Order/ Nutrition Support Regular Patient / S.O Not Indicated Pertinent Medications maalox, MOM, Theragran Pertinent Labs (07/11) K 3.4, albumin 3.5 Nutritional Hx/Data Height 1.68 m Height (Calculated Centimeters) 167.6 Current Weight (lbs) 61.235 kg Weight (Calculated Kilograms) 61.2 Weight (Calculated Grams) 87017.0 [place] Body Weight 130 % [place] Body Weight 103 Body Mass Index (BMI) 21.7 Weight Status Approriate GI Symptoms GI Symptoms None Last BM 16x 2 Difficult in: None Food Allergies No Cultural/Ethnic/Pentecostal Belief None indicated Usual diet at home unknown Skin Integrity/Comment: William 16, intact Current %PO Poor (25-49%) Estimated Nutritional Goals BEE in Kcals: Using Current wt Calories/Kcals/Kg 61.3 kg 25-30 kcal/kg Kcals Calculated ~7834-4793 kcal/day Protein: Using Current wt Protein g/k gm/kg Protein Calculated 60 gm/day Fluid: ml ~9100-0851 ml/day Nutritional Problem 2. Problem Problem Altered nutrition related lab values related to Etiology electrolyte imbalance aeb Signs/Symptoms: K 3.4 1. Problem Problem Inadequate oral intake related to Etiology possible poor appetite aeb Signs/Symptoms: oral intake <50% of meals Intervention/Recommendation Comments 1. Continue regular diet as tolerated by patient. 2. Encourage oral intake and assist with meals as needed. 3. Provide Ensure Enlive BID to supplement oral caloric intake (also a source of potassium). Expected Outcomes/Goals Expected Outcomes/Goals Oral intake >75% of meals, weight stable, nutrition related labs WNL F/U in 3-5 days as MR (07/18- )
--- NOTE | 2018-07-22 20:31 | Progress Notes ---
DATE: 07/22/2018 The patient was supposed to be discharged yesterday. The patient did not leave because no social media marketing specialist available to discharge the patient, although the nurses could have done that easily, but at the same time, the patient did not discharge and was not even notified with the discharge cancellation. We will discharge the patient today. Hopefully, that will go through. No reason to keep the patient in the hospital at this time. JOB# [id number]
--- NOTE | 2018-07-22 20:33 | Progress Notes ---
DATE: 07/21/2018 SUBJECTIVE: Chart reviewed and the patient interviewed and discussed the patient's condition with the staff. The patient was supposed to be discharged yesterday and this is just late dictation for yesterday since the patient did not leave without my knowledge. I did dictated discharge summary yesterday and this is a notification for that. JOB# [id number]
== END 2018-07-22 16:15 | DRG 885 ==
LOC: ER 19:37 → GERO 22:55
PROVIDERS: ADMIT Psychiatry & Neurology Psychiatry; ATTEND Psychiatry & Neurology Psychiatry
DX: F29 Unspecified psychosis not due to a substance or known physiological condition (principal); F03.91 Unspecified dementia, unspecified severity, with behavioral disturbance; I10 Essential (primary) hypertension; J44.9 Chronic obstructive pulmonary disease, unspecified; E03.9 Hypothyroidism, unspecified; R13.10 Dysphagia, unspecified; H40.9 Unspecified glaucoma; E87.6 Hypokalemia; Z91.81 History of falling
CPT/HCPCS: 36415-UA; 71045-TC; 80048-TC; 80053-TC; 80061-TC; 83036-90; 83880-TC; 84443-TC; 84484-TC; 85025-TC; 86592-TC; 93005; 94664; 94760; J1200; J1630; J2060; J7613; Z7610